=== PATIENT | female | born 1960 | race Caucasian/White ===

== ENCOUNTER 2017-05-25 06:07 | Emergency (ER) | payer SELFPAY ==
[~2017-05-25] VITALS: Ht 167.6 cm; Wt 59.0 kg
[~2017-05-25 06:07] MED LIST: ADVAIR 10028 PUFF/IN IN; ALBUTEROL2.5 MG/NEB IH; BREO ELLIPTA1 POW IH; CIPRO 500MG TA500 MG PO; GABAPENTIN100 M1 PO; LEVAQUIN 750 M750 MG PO; LEVOTHYROXINE0.05 MG NG; MINOCYCLINE 10100 MG PO; NAPROSYN500 M1 PO; NORCO 325 MG-51 TAB PO; PREDNISONE 20MG20 MG PO; SPIRIVA HA1 PUFF/INH IH; SYMBICORT1 AE1 IH; SYNTHROID 0.00.05 MG PO; TESSALON PERLE100 M1 PO; TESSALON PERLE100 MG PO; [UNRECOGNIZED DRUG - MIXTURE] PO
--- OUTSIDE RECORDS SUMMARY | 2017-05-25 06:44 | External Medical Summary Rpt ---
Author Author , GERARDO Puri GERARDO Address Unknown Phone [email or web address] Care Team Providers Care Commis Chef Name Role Phone [facility] Unavailable Unavailable [place], [facility] [place] DANIEL TURPIN MD, PSC, Unavailable Unavailable DANIEL TURPIN MD, PSC ARNOLD MAO, ARNOLD Unavailable Unavailable MAO ARNOLD MAO, ARNOLD Unavailable Unavailable MAO BARRERA BRO, BARRERA Unavailable Unavailable BRO BEINEKE, BEINEKE Unavailable Unavailable BESSON, BESSON Unavailable Unavailable BESSON BUD, BESSON Unavailable Unavailable BUD ALLISON ALL, ALLISON ALL Unavailable Unavailable CAPOOR SEE, CAPOOR Unavailable Unavailable SEE [facility] Unavailable Unavailable [facility], [facility] Unavailable Unavailable [facility], [facility] IBRAHIMA HALEY, Unavailable Unavailable IBRAHIMA HALEY FRYMAN EUG, FRYMAN Unavailable Unavailable EUG HEAVENLY RAMON, HEAVENLY Unavailable Unavailable RAMON GAMBREL PLACIDO, GAMBREL Unavailable Unavailable PLACIDO BOYD BUD, BOYD Unavailable Unavailable BUD [facility] Unavailable Unavailable INC, [facility] Unavailable Unavailable HOSPITAL P, [facility], Unavailable Unavailable [facility] VILLALOBOS TRA, VILLALOBOS TRA Unavailable Unavailable [facility], [facility] ELIANA CRI, ELIANA CRI Unavailable Unavailable EDMUNDO JR, EDMUNDO JR Unavailable Unavailable [facility] Unavailable Unavailable [facility], [facility] CAROLEE SARTHAK, Unavailable Unavailable CAROLEE SARTHAK CAROLEE SARTHAK, Unavailable Unavailable CAROLEE SARTHAK [facility], Unavailable Unavailable [facility] Un[facility] Unavailable [facility], [facility] RENUSCH, RENUSCH Unavailable Unavailable RENUSCH CARLEY, RENUSCH Unavailable Unavailable CARLEY [facility], Unavailable Unavailable [facility] Unavailable Unavailable ASSIST, [facility] VERA MAR, VERA MAR Unavailable Unavailable Purpose Continuity of Care Document - 02-18-2014 through 2016 Problems Code Diagnosis DOS Provider Status D649 ANEMIA 01-12-2017 [facility] P J209 ACUTE 01-12-2017 [facility] BRONCHITIS [facility] P K219 GASTRO-ESOP 01-12-2017 [facility] H REFLUX [facility] P WITHOUT ESOPHAGITIS R071 CHEST PAIN 01-12-2017 [facility] [id number] CONTUSION 01-12-2017 [facility] RT FRONT [facility], WALL THORAX PLLC INITIAL ENCOUNTER [id number] STRAIN 01-12-2017 [facility] MUSCLE & PHYSIC[facility]ANS, TENDON PLLC FRONT WALL THORAX INIT Z720 TOBACCO USE 01-12-2017 [facility] P E039 HYPOTHYROID 11-15-2016 [facility] UNSPECIFIED INTERNAL MED J431 PANLOBULAR 11-15-2016 [facility] EMPHYSEMA [facility] INTERNAL MED J9801 ACUTE 11-15-2016 [facility] R0781 PLEURODYNIA 11-15-2016 [facility] INTERNAL MED E538 DEFICIENCY 07-06-2016 [facility]IC[facility] SPECIFIED B LA GROUP VITAMINS E43 UNSPECIFIED 07-05-2016 [facility]ERE [facility] PROTEIN-DAIJA LA ORIE MALNUTRITIO N G8929 OTHER 04-05-2016 [facility] CHRONIC [facility] PAIN INTERNAL MED R079 CHEST PAIN 04-05-2016 [facility] UNSPECIFIED [facility] INTERNAL MED M542 CERVICALGIA 01-13-2016 [facility] M549 DORSALGIA 01-13-2016 [facility] G29078 SPONDYLOSIS 01-05-2016 DANIEL TURPIN, W/O , PSC MYELOPATH/R ADICULOPATH Y LUMB RGN M479 SPONDYLOSIS 01-05-2016 [facility] UNSPEC[facility]IED INC M5136 OTH 01-05-2016 SANDHYA HARDWICK MD, PSC RAL DISC DEGEN LUMBAR REGION J439 EMPHYSEMA 11-24-2015 [facility] INC R634 ABNORMAL 11-24-2015 [facility] WEIGHT LOSS [facility] R918 OTHER 11-24-2015 [facility] NONSPECIFIC [facility]ICAL ABNORMAL [facility] ASS FINDING OF LUNG FIELD J449 CHRONIC 11-17-2015 [facility] PULMONARY INC DISEASE UNS L70331 OTHER 09-15-2015 [facility] SPONDYLOSIS MEDICAL LUMBAR IMAGING ASS REGION M5126 OTH 09-15-2015 [facility] INTERVERTEB MEDICAL RAL DISC IMAGING ASS DISPLACEMEN T LUMBAR RGN M545 LOW BACK 09-15-2015 [facility]IN [facility] R05 COUGH 08-20-2015 [facility] R0602 SHORTNESS 08-20-2015 [facility] OF BREATH [facility] J310 CHRONIC 08-06-2015 [facility] [place] J440 COPD WITH 08-06-2015 [facility] ACUTE LOWER [facility] [place] RESPIRATORY INFECTION J4520 MILD 08-06-2015 [facility] INTERMITTEN [facility] OF T ASTHMA [place] UNCOMPLICAT ED R011 CARDIAC 07-29-2015 [facility] PH[facility]ANS UNSPECIFIED GROUP K5660 UNSPECIFIED 07-24-2015 [facility] OBSTRUCTION R109 UNSPECIFIED 07-24-2015 [facility]OMINAL [facility] PAIN [facility] R112 NAUSEA WITH 07-24-2015 [facility] VOMITING MEDICAL UNSPECIFIED IMAGING ASS R188 OTHER 07-24-2015 [facility] ASCITES [facility] R938 ABNORMAL 07-14-2015 [facility] FIND ON DX PHYSICIANS IMAGING OTH GROUP SPEC BODY STRCT 496 CHRONIC 07-09-2015 [facility] OBSTRUCTION INC NEC 5110 PLEURISY 07-09-2015 [facility] WITHOUT MEDICAL MENTION IMAGING ASS EFFUS/CURRE NT TB 7210 CERVICAL 07-09-2015 [facility] SPONDYLOSIS MEDICAL WITHOUT IMAGING ASS MYELOPATHY 7231 CERVICALGIA 07-09-2015 [facility] 7245 UNSPECIFIED 07-09-2015 [facility] BACKACHE [facility] 47005 SHORTNESS 07-09-2015 [facility] OF [facility] 7862 COUGH 07-09-2015 [facility] 3669 UNSPECIFIED 05-27-2015 [facility] 92910 MIOSIS , 05-27-2015 [facility] NOT DUE TO SERVICES MIOTICS 50470 TOTAL OR 03-25-2015 [facility] SENILE ASSIST CATARACT 4660 ACUTE 01-16-2015 ARNOLD MAO BRONCHITIS 4770 ALLERGIC 12-17-2014 [facility] RHINITIS SARTHAK DUE TO POLLEN 4778 ALLERGIC 12-17-2014 [facility] RHINITIS SARTHAK DUE TO OTHER ALLERGEN 4919 UNSPECIFIED 12-17-2014 CAR[facility] CHRONIC SARTHAK BRONCHITIS 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 33954 OTHER 05-23-2014 CAR[facility]E MALAISE AND SARTHAK FATIGUE V727 DIAGNOSTIC 05-23-2014 CAR[facility]E SKIN AND SARTHAK SENSITIZATI ON TESTS 10788 OBSTRUCTIVE 04-20-2014 GUILLERMINA CAVANAUGH CHRONIC BRONCHITIS WITH EXACERBATIO N 26776 ASTHMA 04-20-2014 GUILLERMINA CAVANAUGH UNSPECIFIED WITH STATUS ASTHMATICUS 12980 OTHER 02-18-2014 [facility] DISEASES OF N EMERGENCY NASAL PHYS CAVITY AND SINUSES 486 PNEUMONIA, 02-18-2014 [facility] ORGANISM N EMERGENCY UNSPECIFIED PHYS Medications Na ND Rx Da Fi Fi Am Da Di Ph RX Ph St me C No te ll ll ou ys ag ar # ys at rm s nt no ma ic us Or Da si cy ia de te s n re d BE 68 04 05 15 5 00 VA Ac NZ 38 -0 -0 .0 00 L- ti ON 20 6- 5- 00 07 MA ve AT 24 20 20 48 RT AT 70 17 17 07 E 1 78 PH 10 AR 0 MA MG CY CA #5 PS 91 UL E NV 13 04 05 14 7 00 VA Ac NO 66 -0 -0 .0 00 L- ti CY 80 6- 5- 00 07 MA ve CL 48 20 20 48 RT IN 45 17 17 07 E 0 79 PH 10 AR 0 MA MG CY CA #5 PS 91 UL E NH 00 04 05 10 5 00 VA Ac ED 14 -0 -0 .0 00 L- ti NI 39 6- 5- 00 07 MA ve SO 73 20 20 48 RT NE 80 17 17 07 5 80 PH 20 AR MA MG CY TA #5 BL 91 ET GA 53 04 04 30 30 00 VA Ac BA 74 -0 -2 .0 00 L- ti PE 60 4- 8- 00 07 MA ve NT 10 20 20 47 RT IN 10 17 17 93 5 35 PH 10 AR 0 MA MG CY CA #5 PS 91 UL E NV 57 03 04 30 30 00 VA Ac RT 23 -2 -2 .0 00 L- ti AZ 70 9- 1- 00 07 MA ve AP 00 20 20 47 RT IN 93 17 17 92 E 0 80 PH 30 AR MA MG CY TA #5 BL 91 ET GA 53 03 04 30 30 00 VA Ac BA 74 -1 -0 .0 00 L- ti PE 60 2- 7- 00 07 MA ve NT 10 20 20 47 RT IN 10 17 17 14 5 25 PH 10 AR 0 MA MG CY CA #5 PS 91 UL E SP 00 02 03 30 30 00 VA Ac IR 59 -2 -2 .0 00 L- ti IV 70 8- 4- 00 07 MA ve A 07 20 20 41 RT 18 54 17 17 28 1 96 PH MC AR G MA CP CY -H AN #5 DI 91 SIN LE R VE 00 02 03 18 17 00 WA Ac NT 17 -2 -2 .0 00 L- ti OL 30 8- 4- 00 07 MA ve IN 68 20 20 41 RT 22 17 17 29 HF 0 06 PH A AR 90 MA CY MC G #5 IN 91 SIN LE R FL 60 02 03 16 30 00 WA Ac UT 43 -2 -2 .0 00 L- ti IC 20 8- 4- 00 07 MA ve 26 20 20 44 RT ON 41 17 17 32 E 5 67 PH NH AR OP MA CY 50 #5 MC 91 G SP RA Y SY 00 02 03 10 30 00 WA Ac MB 18 -2 -2 .1 00 L- ti IC 60 8- 4- 99 07 MA ve OR 37 20 20 42 RT T 02 17 17 12 16 0 63 PH 0- AR 4. MA 5 CY MC G #5 IN 91 SIN LE R LE 00 02 03 30 30 00 WA Ac VO 78 -2 -2 .0 00 L- ti TH 15 8- 4- 00 07 MA ve YR 18 20 20 44 RT OX 49 17 17 36 IN 2 41 PH E AR 10 MA 0 CY MC G #5 TA 91 BL ET PA 68 02 03 30 30 00 WA Ac RO 38 -2 -2 .0 00 L- ti XE 20 8- 4- 00 07 MA ve TI 09 20 20 44 RT NE 80 17 17 59 6 61 PH HC AR L MA 20 CY MG #5 91 TA BL ET GA 53 02 03 30 30 00 WA Ac BA 74 -1 -1 .0 00 L- ti PE 60 7- 7- 00 07 MA ve NT 10 20 20 47 RT IN 10 17 17 14 5 25 PH 10 AR 0 MA MG CY CA #5 PS 91 UL E LE 00 01 02 30 30 00 WA Ac VO 78 -0 -0 .0 00 L- ti TH 15 5- 3- 00 07 MA ve YR 18 20 20 44 RT OX 49 17 17 36 IN 2 41 PH E AR 10 MA 0 CY MC G #5 TA 91 BL ET AZ 59 01 02 15 30 00 WA Ac IT 76 -0 -0 .0 00 L- ti HR 23 5- 3- 00 07 MA ve OM 06 20 20 42 RT YC 00 17 17 12 IN 2 64 PH AR 25 MA 0 CY MG #5 TA 91 BL ET GA 65 01 02 30 30 00 WA Ac BA 16 -0 -0 .0 00 L- ti PE 20 5- 3- 00 07 MA ve NT 10 20 20 44 RT IN 15 17 17 18 0 71 PH 10 AR 0 MA MG CY CA #5 PS 91 UL E Procedures Procedure DOS Code Location Performer Comment THERAPEUT 43785 [facility] FRA[facility] IC 7 [facility] INJECTION INC INC IV PUSH EACH NEW DRUG THER 29877 [facility] FRAZIER PROPH/DX 7 [facility] NJX IV INC INC PUSH SINGLE/1S T SBST/DRUG ECG 55263 FR[facility] FRAZIER ROUTINE 7 [facility] ECG INC INC W/LEAST 12 LDS TRCG ONLY W/O I&R CULTURE 31782 [facility] FRAZIER BACTERIAL 7 [facility] BLOOD INC INC AEROBIC W/ID ISOLATES BLOOD 60810 [facility] FRAZIER COUNT 7 [facility] COMPLETE INC INC AUTO&[place] [address] FR[facility] FRAZIER TROPONIN 7 [facility] QUANTITAT INC INC ANAMIKA ECG 95806 FR[facility]DIE WYATT JR ROUTINE 7 [facility] W/LEAST P 12 LDS I&R ONLY RADIOLOGI 24551 [facility] EXAM 7 MEDICAL CHEST 2 IMAGING VIEWS ASS FRONTAL&L ATERAL UNCLASSIF J3490 [facility] IED DRUGS 7 [facility] INC INC RADEX 42635 [facility] RENUSCH RIBS UNI 7 PHYSICIAN W/POSTERO S, PLLC ANT CH MINIMUM [address] [place] [address] [facility] LACTATE 7 [facility] INC INC COMPREHEN 42669 [facility] SIVE 7 [facility] METABOLIC INC INC PANEL DEMO&/USMAN 54236 [facility]ON L OF PT 7 [facility] INTERNAL AERSL MED GEN/NEB/I NHLR/IP UNCLASSIF J3490 [facility] IED DRUGS 6 [facility] INC INC RADEX 70331 [facility] FRAZIER RIBS UNI 6 [facility] W/POSTERO INC INC ANT CH MINIMUM 3 VIEWS CYANOCOBA 26053 COMBINED COMBINED BARBARA 6 PHYSICIAN PHYSICIAN VITAMIN S LA S LA B-12 [place] [address] COMBINED COMBINED FERRITIN 6 PHYSICIAN PHYSICIAN S LA S LA IRON 83067 COMBINED COMBINED BINDING 6 PHYSICIAN [place] [address] COMBINED COMBINED IRON 6 [place] [address] COMBINED COMBINED THYROID 6 PHYSICIAN PHYSICIAN STIMULATI S LA S LA NG HORMONE TSH COMPREHEN 01621 COMBINED COMBINED SIVE 6 PHYSICIAN PHYSICIAN METABOLIC S LA S LA PANEL LIPID 61093 COMBINED COMBINED PANEL 6 PHYSICIAN PHYSICIAN S LA S LA BLOOD 92990 COMBINED COMBINED COUNT 6 PHYSICIAN PHYSICIAN COMPLETE S LA S LA AUTO&AUTO DIFRNTL WBC THERAPEUT 27918 FR[facility] FRAZIER IC PX 1/> 6 [facility] AREAS INC INC EACH 15 MIN EXERCISES APPLICATI 66910 FR[facility] FRAZIER ON 6 [facility] MODALITY INC INC 1/> AREAS HOT/COLD PACKS E-STIM G0283 [facility] FRAZIER 1/> AREAS 6 [facility] OTH THAN INC INC WND CARE PART TX PLAN PHYSICAL 31620 [facility] THERAPY 6 [facility] EVALUATIO INC INC N CT THORAX 41401 [facility] IBRAHIMA W/O 6 MEDICAL HALEY CONTRAST IMAGING MATERIAL ASS SMR PRIM 76459 [facility] SRC 6 [facility] GRAM/GIEM INC INC SA STAIN BCT FUNGI/BARON L BLOOD 62771 [facility] COUNT 6 [facility] COMPLETE INC INC AUTO&AUTO DIFRNTL WBC TB CELL 19330 [facility] MEDIATED 6 [facility] ANTIGN INC INC RESPNSE GAMMA INTERFERO N CULTURE 84002 [facility] F[facility] TUBERCLE/ 6 [facility] OTH INC INC ACID-FAST BACILLI ANY ISOL CUL BACT 61980 [facility] XCPT 6 [facility] URINE INC INC BLOOD/STO OL AEROBIC ISOL CULTURE 56267 [facility] FRA[facility] FNGI 6 [facility] MOLD/YEAS INC INC T PRSMPTV OTH XCPT BLOOD COMPREHEN 19108 [facility] FRAZIER SIVE 6 [facility] METABOLIC INC INC PANEL COLLECTIO 11540 [facility] FRAZ[facility] N VENOUS 6 [facility] BLOOD INC INC VENIPUNCT URE 3D 05797 MANDY IBRAHIMA RENDERING 5 MEDICAL [facility] W/INTERP IMAGING & ASS POSTPROCE SS SUPERVISI ON MRI 77589 [facility] ALEXANDRA SPINAL 5 MEDICAL [facility] CANAL IMAGING LUMBAR ASS W/O CONTRAST MATERIAL CT THORAX 08047 MANDY ALLISON ALL W/O 5 MEDICAL CONTRAST IMAGING MATERIAL ASS NITRIC 58106 [facility] VERA MAR OXIDE 5 [facility] GAS CO DETERMINA TION BRNCDILAT 26067 [facility] VERA MAR RSPSE 5 [facility] SPMTRY [facility] PRE&POST- [place] [address] [facility] F[facility] LIPASE 5 [facility] [place] [address] FR[facility] FRAZIER INFUSION 5 [facility] THERAPY/P INC INC ROPHYLAXI S /DX 1ST TO 1 HR HOSPITAL G0378 [facility] FRAZIER OBSERVATI 5 [facility]OS[facility] [place] [address] [facility] F[facility] THYROID 5 [facility] STIMULATI [place] [address] FR[facility]IE FRAZIER AMYLASE 5 [facility] INC INC COMPREHEN 76981 FR[facility]DIE FRAZIER SIVE 5 [facility] METABOLIC INC INC PANEL INJECTION J2405 FR[facility]DIE FRAZIER 5 [facility] ONDANSETR INC INC ON HCL PER 1 MG THERAPEUT 67196 FR[facility]IE FRAZIER IC 5 [facility] INJECTION INC INC IV PUSH EACH NEW DRUG BLOOD 57046 FR[facility] FRAZIER COUNT 5 [facility] COMPLETE INC INC AUTO&AUTO DIFRNTL WBC UNCLASSIF J3490 FR[facility]DIE FRAZIER IED DRUGS 5 [facility] [place] [address] MANDY ALLISON ALL ABDOMEN & 5 MEDICAL PELVIS IMAGING W/O ASS CONTRAST MATERIAL SKIN TEST 39187 [facility] SHIRAZAN 5 [facility] SIS INTRADERM AL RADEX 44881 [facility] FRAZIER SPINE 5 [facility] THORACIC INC INC 2 VIEWS RADIOLOGI 27655 MANDY ALLISON ALL C EXAM 5 MEDICAL CHEST 2 IMAGING VIEWS ASS FRONTAL&L ATERAL RADEX 82221 [facility] ALLISON ALL SPINE 5 MEDICAL CERVICAL IMAGING 4 OR 5 ASS VIEWS BRNCDILAT 87789 FR[facility]DIE MONROE RSPSE 5 [facility] PRE&POST- P BRNCDILAT ADMN ECHO 71693 FR[facility]DIE FRAZIER TTHRC R-T 5 [facility] HOSP 2D INC INC W/WOM-MOD E COMPL SPEC&[place] [address] FR[facility]DIE MONROE DIFFUSING 5 [facility] P GAS 04436 FR[facility]DIE MONROE DILUT/WAS 5 [facility] VOL W/WO P DISTRIB VENT&V ANESTHESI 46633 [place] GAM[facility]REL A EYE 5 MEDICAL PLACIDO LENS SERVICES SURGERY XCAPSULAR 68546 [place] [facility] CATARACT 5 MEDICAL SEE RMVL SERV INSJ LENS FOUNDATIO PROSTH 1 N STG XCAPSULAR 58103 [place] [facility] 5 MEDICAL SEE RMVL SERV INSJ LENS FOUNDATIO PROSTH 1 N STG ANESTHESI 21594 [facility] A EYE 5 [facility] LENS PHYSICIAN SURGERY S ASSIST DEMO&/USMAN 39925 CAROLEE CAROLEE L OF PT 5 SARTHAK SARTHAK UTILIZ AERSL GEN/NEB/I NHLR/IP NONINVASI 13673 CAROLEE CAROLEE VE 5 SARTHAK SARTHAK EAR/PULSE OXIMETRY SINGLE DETER PRESSURIZ 85624 CAROLEE CAROLEE ED/NONPRE 5 SARTHAK SARTHAK SSURIZED INHALATIO N TREATMENT BRNCDILAT 96774 CAROLEE CAROLEE RSPSE 5 SARTHAK SARTHAK SPMTRY PRE&POST- BRNCDILAT ADMN SPMTRY 23384 CAROLEE CAROLEE W/VC 4 SARTHAK SARTHAK EXPIRATOR Y LOURDES W/WO MXML VOL VNTJ SPMTRY 75203 CAROLEE CAROLEE W/VC 4 SARTHAK DE LEÓN EXPIRATOR Y LOURDES W/WO MXML VOL VNTJ NONINVASI 29506 CAROLEE CAROLEE VE 4 SARTHAK DE LEÓN EAR/PULSE OXIMETRY SINGLE DETER PRESSURIZ 88812 CAROLEE CAROLEE ED/NONPRE 4 SARTHAK DE LEÓN SSURIZED INHALATIO N TREATMENT BRNCDILAT 68220 CAROLEE CAROLEE RSPSE 4 SARTHAK DE LEÓN SPMTRY PRE&POST- BRNCDILAT ADMN INTRACUTA 79905 CAROLEE CAROLEE NEOUS 4 SARTHAK SARTHAK TESTS W/ALLERGE MARGAUX EXTRACTS PERCUTANE 99198 CAROLEE CAROLEE OUS TESTS 4 SARTHAK SARTHAK W/ALLERGE MARGAUX EXTRACTS NITRIC 71641 CAROLEE CAROLEE OXIDE 4 SARTHAK DE LEÓN GAS DETERMINA TION DEMO&/USMAN 27401 CAROLEE CAROLEE L OF PT 4 SARTHAK DE LEÓN UTILIZ AERSL GEN/NEB/I NHLR/IP NEBULIZER E0570 MT MED MT MED WITH 4 EQUIPMENT EQUIPMENT COMPRESSO INC INC R SPACR A4627 MT MED MT MED BAG/RESRV 4 EQUIPMENT EQUIPMENT OR W/WO INC INC MASK W/METRD DOSE INHAL ADMN SET A7005 MT MED MT MED W/SM VOL 4 EQUIPMENT EQUIPMENT NONFILTR INC INC NEBULIZR NON-DISPB L ECG 37123 FR[facility] FRAZIER ROUTINE 4 [facility] ECG INC INC W/LEAST 12 LDS TRCG ONLY W/O I&R PROTHROMB 18011 FR[facility]DIE FRAZIER IN TIME 4 [facility] INC INC FIBRIN 80904 [facility] FRAZIER DGRADJ 4 [facility] PRODUCTS INC INC D-DIMER QUAL/SEMI SHAUN CREATINE 04601 FR[facility]IE FRAZIER KINASE 4 [facility] TOTAL INC INC RHYTHM 82380 FR[facility]DIE FRAZIER ECG 1-3 4 [facility] LEADS INC INC TRACING ONLY W/O I&R RADIOLOGI 37589 FREDDIE Scott EXAM 4 [facility] CHEST 2 INC INC VIEWS FRONTAL&L ATERAL CULTURE 57124 FR[facility]DIE FRAZIER BACTERIAL 4 [facility] BLOOD INC INC AEROBIC W/ID ISOLATES BLOOD 67159 FREDDIE FRAZIER COUNT 4 [facility] COMPLETE INC INC AUTO&AUTO DIFRNTL WBC THROMBOPL 75305 FREDDIE FRAZIER ASTIN 4 [facility] TIME INC INC PARTIAL PLASMA/WH OLE BLOOD UNCLASSIF J3490 FREDDIEPEDRO FRAZIER IED DRUGS 4 [facility]OS[facility] INC INC ECG 85644 FREDDIE MONROE ROUTINE 4 [facility] W/LEAST P 12 LDS I&[place] [address] FREDDIE FRAZIER ANGIOGRAP 4 [facility] HOS[facility] HY CHEST INC INC W/[place] [address] FREDDIE FRAZIER TROPONIN 4 [facility]OS[facility] QUANTITAT INC INC ANAMIKA CREATINE 71415 FREDDIE FRAZIER KINASE MB 4 [facility]OS[facility] FRACTION INC INC ONLY COMPREHEN 21374 FREDDIE FRAZIER SIVE 4 [facility] METABOLIC INC INC PANEL LOCM Q9967 FR[facility]DIE FRAZIER 300-399 4 [facility] MG/ML INC INC IODINE CONCENTRA TION PER ML Encounters Encounter Start End Date Code Location Performer Type Date [facility] FREDDIE - 7 7 [facility] OUTPATIEN [facility] T EMERGENCY 73943 CONNIE ULLOA 7 7 PHYSICIAN [facility] T VISIT HIGH/URGE NT SEVERITY OFFICE 57759 STEPHANE MONROE [facility] 7 7 [place] T VISIT INTERNAL 25 MED MINUTES EMERGENCY [address] FREDDIE [address] [facility] T VISIT LIMITED/M INOR [facility] FREDDIE - 6 6 [facility] T EMERGENCY 90084 CONNIE ULLOA 6 6 PHYSICIAN S[place]IL [place] T VISIT HIGH/URGE NT SEVERITY OFFICE 52836 [facility] OUTPATIEN 6 6 [facility] T VISIT INTERNAL 15 MED MINUTES OFFICE 81043 [facility] OUTPATIEN 6 6 [facility] NEW 45 INTERNAL MINUTES [facility] FREDDIE - 6 6 [facility] OUTPATIEN INC T OFFICE 27588 DANIEL MONROY [facility] OUTPATIEN 6 6 MD DYANA, T NEW 45 PSC MINUTES HOSPITAL FREDDIE - 6 6 [facility] OUTPATIEN [facility] OFFICE 24320 FREDDIE OUTPATIEN 6 6 [facility] T VISIT INC 10 MINUTES HOSPITAL FREDDIE - 6 6 [facility]PATIEN [facility] FREDDIE - 6 6 [facility] OUTPATIEN INC [facility] FREDDIE - 5 5 [facility] OUTPATIEN INC HOSPITAL FREDDIE - 5 5 [facility] OUTPATIEN [facility] T OFFICE 59672 [facility] OUTPATIEN 5 5 PHYSICIAN RAMON T VISIT S GROUP 10 MINUTES OFFICE 90300 [facility] VERA MAR OUTPATIEN 5 5 [facility]ERS T VISIT OF [facility] 25 CO MINUTES OFFICE 65020 [facility] OUTPATIEN 5 5 PHYSICIAN RAMON T VISIT S GROUP 25 MINUTES EMERGENCY 20947 CONNIE BURDICK DEPT 5 5 PHYSICIAN RAMON VISIT S, PLLC HIGH SEVERITY& THREAT [facility] FR[facility] - 5 5 [facility] OUTPATIEN INC T OFFICE 55723 [facility] SCHULSTAD OUTPATIEN 5 5 PHYSICIAN CAM T NEW 45 S GROUP MINUTES OFFICE 84686 [facility] TRA CONSULTAT 5 5 [place] ION ORTHOPAED NEW/ESTAB ICS PLC PATIENT 40 MIN OFFICE 02197 [facility] HE[facility] OUTPATIEN 5 5 PHYSICIAN RAMON T VISIT 5 S GROUP MINUTES OFFICE 73944 [facility] NIELSEN OUTPATIEN 5 5 [facility] T VISIT 5 HOSPITAL MINUTES [facility] - 5 5 [facility] - 5 5 [facility] INC T OFFICE 49951 GUILLERMINA GUILLERMINA OUTPATIEN 5 5 MAO MAO T VISIT 15 MINUTES OFFICE 30551 CAROLEE CAROLEE OUTPATIEN 5 5 SARTHAK SARTHAK T VISIT 25 MINUTES OFFICE 50779 [facility] CAROLEE OUTPATIEN 4 4 SARTHAK SARTHAK T VISIT 25 MINUTES OFFICE 63720 CAR[facility] CAROLEE OUTPATIEN 4 4 SARTHAK SARTHAK T VISIT 25 MINUTES OFFICE 74686 CAROLEE DYERHBURN CONSULTAT 4 4 SARTHAK SARTHAK ION NEW/ESTAB PATIENT 80 MIN OFFICE 53764 [facility] GUILLERMINA OUTPATIEN 4 4 MAO MAO T VISIT 15 MINUTES EMERGENCY 98681 [facility] DEPT 4 4 JACKIE GAFFNEY VISIT EMERGENCY HIGH PHYS SEVERITY& THREAT FUNJ EMERGENCY 02582 [facility] 4 4 [facility] INC T VISIT HIGH/URGE NT SEVERITY [facility] - 4 4 [facility] INC T
--- OUTSIDE RECORDS SUMMARY | 2017-05-25 06:44 | External Medical Summary Rpt ---
Author Author , GERARDO Puri GERARDO Address Unknown Phone [email or web address] Care Team Providers Care Cut Order Hand Name Role Phone [facility] Unavailable [...] PLACIDO BOYD BUD, BOYD Unavailable Unavailable [facility] Unavailable Unavailable INC, [facility] Unavailable Unavailable HOSPITAL P, [facility] P [facility], Unavailable Unavailable [facility] VILLALOBOS TRA, VILLALOBOS TRA Unavailable Unavailable [facility] ELIANA CRI, ELIANA CRI Unavailable Unavailable EDMUNDO JR, EDMUNDO JR Unavailable Unavailable [facility] Unavailable Unavailable INTERNAL MED, [facility] CAROLEE SARTHAK, Unavailable Unavailable CAROLEE SARTHAK CAROLEE SARTHAK, Unavailable Unavailable CAROLEE SARTHAK [facility], Unavailable Unavailable [facility] Unavailable Unavailable PLL[facility], [facility] RENUSCH, RENUSCH Unavailable Unavailable RENUSCH CARLEY, RENUSCH Unavailable Unavailable CARLEY [facility], Unavailable Unavailable [facility] Unavailable Unavailable ASSIST, [facility] ASS[facility] VERA MAR, VERA MAR Unavailable Unavailable Purpose Continuity of Care Document - 02-18-2014 through 2016 Problems Code Diagnosis DOS Provider Status D649 ANEMIA 01-12-2017 [facility] P J209 ACUTE 01-12-2017 [facility] P K219 GASTRO-ESOP 01-12-2017 [facility] H REFLUX [facility] P WITHOUT ESOPHAGITIS R071 CHEST PAIN 01-12-2017 [facility] [id number] CONTUSION 01-12-2017 [facility] RT FRONT [facility], WALL THORAX PLLC INITIAL ENCOUNTER [id number] STRAIN 01-12-2017 [facility] MUSCLE & [facility]YS[facility], TENDON PLLC FRONT WALL THORAX INIT Z720 TOBACCO USE 01-12-2017 [facility] P E039 HYPOTHYROID 11-15-2016 [facility] [place] UNSPECIFIED INTERNAL MED J431 PANLOBULAR 11-15-2016 [facility] EMPHYSEMA [place] INTERNAL MED J9801 ACUTE 11-15-2016 [facility] R0781 PLEURODYNIA 11-15-2016 [facility] [place] INTERNAL MED E538 DEFICIENCY 07-06-2016 [facility] OTHER PHYSICIANS SPECIFIED B LA GROUP VITAMINS E43 UNSPECIFIED 07-05-2016 [facility] SEVERE PHYSICIANS PROTEIN-DAIJA LA ORIE MALNUTRITIO N G8929 OTHER 04-05-2016 [facility] CHRONIC [place] PAIN INTERNAL MED R079 CHEST PAIN 04-05-2016 [facility] UNSPECIFIED [place] INTERNAL MED M542 CERVICALGIA 01-13-2016 [facility] M549 DORSALGIA 01-13-2016 [facility] INC [id number] SPONDYLOSIS 01-05-2016 DANIEL TURPIN, W/O , PSC MYELOPATH/R ADICULOPATH Y LUMB RGN M479 SPONDYLOSIS 01-05-2016 [facility] UNSPECIFIED INC 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 01-05-2016 SANDHYA HARDWICK MD, PSC RAL DISC DEGEN LUMBAR REGION J439 EMPHYSEMA 11-24-2015 [facility] INC R634 ABNORMAL 11-24-2015 [facility] WEIGHT LOSS [facility] INC R918 OTHER 11-24-2015 [facility] NONSPECIFIC [facility]NORMAL [facility] FINDING OF LUNG FIELD J449 CHRONIC 11-17-2015 [facility] PULMONARY INC DISEASE UNS C17143 OTHER 09-15-2015 [facility] SPONDYLOSIS [facility]ICAL LUMBAR IMAGING ASS REGION M5126 OTH 09-15-2015 [facility] INTERVERTEB [facility]ICAL RAL DISC IMAGING ASS DISPLACEMEN T LUMBAR RGN M545 LOW BACK 09-15-2015 [facility] R05 COUGH 08-20-2015 [facility] R0602 SHORTNESS 08-20-2015 [facility] J310 CHRONIC 08-06-2015 [facility] RHINITIS [facility] CO J440 COPD WITH 08-06-2015 [facility] ACUTE LOWER [facility] CO RESPIRATORY INFECTION J4520 MILD 08-06-2015 [facility] INTERMITTEN PARTNERS OF T ASTHMA [facility] CO UNCOMPLICAT ED R011 CARDIAC 07-29-2015 [facility] PHYSICIANS UNSPECIFIED GROUP K5660 UNSPECIFIED 07-24-2015 [facility] OBSTRUCTION R109 UNSPECIFIED 07-24-2015 [facility] PAIN [facility] R112 NAUSEA WITH 07-24-2015 [facility] VOMITING [facility]ICAL UNSPECIFIED IMAGING ASS R188 OTHER 07-24-2015 [facility] ASC[facility]ES [facility] R938 ABNORMAL 07-14-2015 [facility] FIND ON DX PHYSICIANS IMAGING OTH GROUP SPEC BODY STRCT 496 CHRONIC 07-09-2015 [facility] OBSTRUCTION INC NEC 5110 PLEURISY 07-09-2015 [facility] WITHOUT MEDICAL MENTION IMAGING ASS EFFUS/CURRE NT TB 7210 CERVICAL 07-09-2015 [facility] SPONDYLOSIS MEDICAL WITHOUT IMAGING ASS MYELOPATHY 7231 CERVICALGIA 07-09-2015 [facility] 7245 UNSPECIFIED 07-09-2015 [facility]HE [facility] 14877 SHORTNESS 07-09-2015 [facility] 7862 COUGH 07-09-2015 [facility] 3669 UNSPECIFIED 05-27-2015 [facility] 94035 MIOSIS , 05-27-2015 [facility] NOT DUE TO SERVICES MIOTICS 51089 TOTAL OR 03-25-2015 [facility] MATURE PHYSICIANS SENILE ASSIST CATARACT 4660 ACUTE 01-16-2015 ARNOLD MAO BRONCHITIS 4770 ALLERGIC 12-17-2014 CARO[facility]E RHINITIS SARTHAK DUE TO POLLEN 4778 ALLERGIC 12-17-2014 CAR[facility]E RHINITIS SARTHAK DUE TO OTHER ALLERGEN 4919 UNSPECIFIED 12-17-2014 CAROLEE CHRONIC SARTHAK BRONCHITIS 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 48542 OTHER 05-23-2014 CAROLEE MALAISE AND SARTHAK FATIGUE V727 DIAGNOSTIC 05-23-2014 CAROLEE SKIN AND SARTHAK SENSITIZATI ON TESTS 10889 OBSTRUCTIVE 04-20-2014 GUILLERMINA CAVANAGUH CHRONIC BRONCHITIS WITH EXACERBATIO N 61284 ASTHMA 04-20-2014 GUILLERMINA CAVANAUGH UNSPECIFIED WITH STATUS ASTHMATICUS 61340 OTHER 02-18-2014 [facility] DISEASES [facility] N EMERGENCY [...] BE 68 04 05 15 5 00 MT Ac NZ 38 -0 -0 .0 00 L- ti ON 20 6- 5- 00 07 MA ve AT 24 20 20 48 RT AT 70 17 17 07 E 1 78 PH 10 AR 0 MA MG CY CA #[address] 13 04 05 14 7 00 MT Ac NO 66 -0 -0 .0 00 L- ti CY 80 6- 5- 00 07 MA ve CL 48 20 20 48 RT IN 45 17 17 07 E 0 79 PH 10 AR 0 MA MG CY CA #5 PS 91 UL E VT 00 04 05 10 5 00 MT Ac ED 14 -0 -0 .0 00 L- ti NI 39 6- 5- 00 07 MA ve SO 73 20 20 48 RT NE 80 17 17 07 5 80 PH 20 AR MA MG CY TA #5 BL 91 ET GA 53 04 04 30 30 00 MT Ac BA 74 -0 -2 .0 00 L- ti PE 60 4- 8- 00 07 MA ve NT 10 20 20 47 RT IN 10 17 17 93 5 35 PH 10 AR 0 MA MG CY CA #[address] 57 03 04 30 30 00 MT Ac RT 23 -2 -2 .0 00 L- ti AZ 70 9- 1- 00 07 MA ve AP 00 20 20 47 RT IN 93 17 17 92 E 0 80 PH 30 AR MA MG CY TA #5 BL 91 ET GA 53 03 04 30 30 00 MT Ac BA 74 -1 -0 .0 00 L- ti PE 60 2- 7- 00 07 MA ve NT 10 20 20 47 RT IN 10 17 17 14 5 25 PH 10 AR 0 MA MG CY CA #5 PS 91 UL E SP 00 02 03 30 30 00 MT Ac IR 59 -2 -2 .0 00 [...] 17 17 32 E 5 67 PH VT AR OP MA CY 50 #5 MC [...] Procedure DOS Code Location Performer Comment THERAPEUT 93780 [facility] IC 7 [facility] INJECTION INC INC IV PUSH EACH NEW DRUG THER 57831 [facility] FRAZIER PROPH/DX 7 [facility] NJX IV INC INC PUSH SINGLE/1S T SBST/DRUG ECG 63660 [facility]IE FRAZIER ROUTINE 7 [facility] ECG INC INC W/LEAST 12 LDS TRCG ONLY W/O I&R CULTURE 27503 FR[facility]IE FRAZIER BACTERIAL 7 [facility] BLOOD INC INC AEROBIC W/ID ISOLATES BLOOD 01938 [facility] FRAZIER COUNT 7 [facility] COMPLETE INC INC AUTO&[place] [address] FR[facility] FRAZIER TROPONIN 7 [facility] QUANTITAT INC INC ANAMIKA ECG 67101 FR[facility]DIE WYATT JR ROUTINE 7 [facility] W/LEAST P 12 LDS I&R ONLY RADIOLOGI 54756 [facility] EXAM 7 MEDICAL CHEST 2 IMAGING VIEWS ASS FRONTAL&L ATERAL UNCLASSIF J3490 [facility] F[facility] IED DRUGS 7 [facility] INC INC RADEX 00379 [facility] RENUSCH RIBS UNI 7 PHYSICIAN W/POSTERO S, PLLC ANT CH MINIMUM 3 [place] [address] FR[facility] FRAZ[facility] LACTATE 7 [facility] INC INC COMPREHEN 19240 FR[facility] FRAZIER SIVE 7 [facility] METABOLIC INC INC PANEL DEMO&/USMAN 00781 [facility] OF PT 7 [facility]ILIZ INTERNAL AERSL MED GEN/NEB/I NHLR/IP UNCLASSIF J3490 [facility] FRAZIER IED DRUGS 6 [facility] INC INC RADEX 17212 FR[facility]DIE FRAZIER RIBS UNI 6 [facility] W/POSTERO INC INC ANT CH MINIMUM 3 VIEWS CYANOCOBA 84205 COMBINED COMBINED BARBARA 6 PHYSICIAN PHYSICIAN VITAMIN S [place] S LA B-12 [place] [address] COMBINED COMBINED FERRITIN 6 PHYSICIAN PHYSICIAN S LA S LA IRON 94635 COMBINED COMBINED BINDING 6 PHYSICIAN [place] [address] COMBINED COMBINED IRON 6 [place] [address] COMBINED COMBINED THYROID 6 PHYSICIAN PHYSICIAN STIMULATI S LA S LA NG HORMONE TSH COMPREHEN 85458 COMBINED COMBINED SIVE 6 PHYSICIAN PHYSICIAN METABOLIC S LA S LA PANEL LIPID 03089 COMBINED COMBINED PANEL 6 PHYSICIAN PHYSICIAN S LA S LA BLOOD 34209 COMBINED COMBINED COUNT 6 PHYSICIAN PHYSICIAN COMPLETE S LA S LA AUTO&AUTO DIFRNTL WBC THERAPEUT 14101 FREDDIE FRAZIER IC PX 1/> 6 [facility] AREAS INC INC EACH 15 MIN EXERCISES APPLICATI 38091 FR[facility] FRAZ[facility] ON 6 [facility] MODALITY INC INC 1/> AREAS HOT/COLD PACKS E-STIM G0283 [facility] FRAZIER 1/> AREAS 6 [facility] OTH THAN INC INC WND CARE PART TX PLAN PHYSICAL 83430 [facility] F[facility] THERAPY 6 [facility] EVALUATIO INC INC N CT THORAX 58226 [place] IBRAHIMA W/O 6 MEDICAL HLAEY CONTRAST IMAGING MATERIAL ASS SMR PRIM 97909 [facility] F[facility] SRC 6 [facility] GRAM/GIEM INC INC SA STAIN BCT FUNGI/BARON L BLOOD 58478 [facility] COUNT 6 [facility] COMPLETE INC INC AUTO&AUTO DIFRNTL WBC TB CELL 60354 [facility] F[facility] MEDIATED 6 [facility] ANTIGN INC INC RESPNSE GAMMA INTERFERO N CULTURE 43654 FR[facility]IE FRA[facility] TUBERCLE/ 6 [facility] OTH INC INC ACID-FAST BACILLI ANY ISOL CUL BACT 99456 [facility] F[facility] XCPT 6 [facility] URINE INC INC BLOOD/STO OL AEROBIC ISOL CULTURE 85366 [facility] FRA[facility] FNGI 6 [facility] MOLD/YEAS INC INC T PRSMPTV OTH XCPT BLOOD COMPREHEN 23187 FR[facility]DIE FRAZIER SIVE 6 [facility] METABOLIC INC INC PANEL COLLECTIO 29897 FREDDIE FRAZIER N VENOUS 6 [facility] BLOOD INC INC VENIPUNCT URE 3D 13104 MANDY IBRAHIMA RENDERING 5 MEDICAL HALEY W/INTERP IMAGING & ASS POSTPROCE SS SUPERVISI ON MRI 88099 [facility] ALEXANDRA SPINAL 5 MEDICAL HALEY CANAL IMAGING LUMBAR ASS W/O CONTRAST MATERIAL CT THORAX 21616 MANDY ALLISON ALL W/O 5 MEDICAL CONTRAST IMAGING MATERIAL ASS NITRIC 44718 [facility] VERA MAR OXIDE 5 [facility] GAS CO DETERMINA TION BRNCDILAT 87874 [facility] VERA MAR RSPSE 5 [facility] SPMTRY [facility] PRE&POST- [place] [address] [facility] FRA[facility] LIPASE 5 [facility] [place] [address] FREDDIE FRAZIER INFUSION 5 [facility] THERAPY/P INC INC ROPHYLAXI S /DX 1ST TO 1 [facility] G0378 FR[facility]DIE FRAZIER OBSERVATI 5 [facility] [place] [address] FR[facility] FRAZ[facility] THYROID 5 [facility] STIMULATI [place] [address] FR[facility]DIE FRAZIER AMYLASE 5 [facility] INC INC COMPREHEN 67538 FR[facility]DIE FRAZIER SIVE 5 [facility] METABOLIC INC INC PANEL INJECTION J2405 FR[facility]DIE FRAZIER 5 [facility] ONDANSETR INC INC ON HCL PER 1 MG THERAPEUT 22457 FR[facility]DIE FRAZIER IC 5 [facility] INJECTION INC INC IV PUSH EACH NEW DRUG BLOOD 60858 FR[facility]DIE FRAZIER COUNT 5 [facility] COMPLETE INC INC AUTO&AUTO DIFRNTL WBC UNCLASSIF J3490 FR[facility]DIE FRAZIER IED DRUGS 5 [facility] [place] [address] MANDY ALLISON ALL ABDOMEN & 5 MEDICAL PELVIS IMAGING W/O ASS CONTRAST MATERIAL SKIN TEST 42086 [facility] SHIRAZAN 5 [facility] INTRADERM AL RADEX 22026 FR[facility]DIE FRAZIER SPINE 5 [facility] THORACIC INC INC 2 VIEWS RADIOLOGI 86076 MANDY ALLISON ALL C EXAM 5 MEDICAL CHEST 2 IMAGING VIEWS ASS FRONTAL&L ATERAL RADEX 31205 [facility] ALLISON ALL SPINE 5 MEDICAL CERVICAL IMAGING 4 OR 5 ASS VIEWS BRNCDILAT 69468 FREDDIE MONROE RSPSE 5 [facility] PRE&POST- P BRNCDILAT ADMN ECHO 85263 FREDDIE FRAZIER TTHRC R-T 5 [facility] 2D INC INC W/WOM-MOD E COMPL SPEC&[place] [address] FR[facility] DIFFUSING 5 [facility] P GAS 07548 FR[facility]DIE MONROE DILUT/WAS 5 [facility] VOL W/WO P DISTRIB VENT&V ANESTHESI 22653 [place] GAMBREL A EYE 5 [facility]ICAL PLACIDO [facility]ENS SERVICES SURGERY XCAPSULAR 67040 [place] CAPOOR CATARACT 5 MEDICAL SEE RMVL SERV INSJ LENS FOUNDATIO PROSTH 1 N STG XCAPSULAR 40264 [place] [facility] CATARACT 5 MEDICAL SEE RMVL SERV INSJ LENS FOUNDATIO PROSTH 1 N STG ANESTHESI 01580 [facility] A EYE 5 [facility] LENS PHYSICIAN SURGERY S ASSIST DEMO&/USMAN 42398 CAROLEE CAROLEE L OF PT 5 SARTHAK SARTHAK UTILIZ AERSL GEN/NEB/I NHLR/IP NONINVASI 14508 CAROLEE CAROLEE VE 5 SARTHAK SARTHAK EAR/PULSE OXIMETRY SINGLE DETER PRESSURIZ 89005 CAROLEE CAROLEE ED/NONPRE 5 SARTHAK SARTHAK SSURIZED INHALATIO N TREATMENT BRNCDILAT 50544 CAROLEE CAROLEE RSPSE 5 SARTHAK SARTHAK SPMTRY PRE&POST- BRNCDILAT ADMN SPMTRY 71297 CAROLEE CAROLEE W/VC 4 SARTHAK SARTHAK EXPIRATOR Y LOURDES W/WO MXML VOL VNTJ SPMTRY 05895 CAROLEE CAROLEE W/VC 4 SARTHAK DE LEÓN EXPIRATOR Y LOURDES W/WO MXML VOL VNTJ NONINVASI 51204 CAROLEE CAROLEE VE 4 SARTHAK DE LEÓN EAR/PULSE OXIMETRY SINGLE DETER PRESSURIZ 22282 CAROLEE CAROLEE ED/NONPRE 4 SARTHAK DE LEÓN SSURIZED INHALATIO N TREATMENT BRNCDILAT 02773 CAROLEE CAROLEE RSPSE 4 SARTHAK DE LEÓN SPMTRY PRE&POST- BRNCDILAT ADMN INTRACUTA 08034 CAROLEE CAROLEE NEOUS 4 SARTHAK SARTHAK TESTS W/ALLERGE MARGAUX EXTRACTS PERCUTANE 93482 CAROLEE CAROLEE OUS TESTS 4 SARTHAK SARTHAK W/ALLERGE MARGAUX EXTRACTS NITRIC 09877 CAROLEE CAROLEE OXIDE 4 SARTHAK DE LEÓN GAS DETERMINA TION DEMO&/USMAN 01195 CAROLEE CAROLEE L OF PT 4 SARTHAK [...] NONFILTR INC INC NEBULIZR NON-DISPB L ECG 75219 FR[facility]DIE FRAZIER ROUTINE 4 [facility] ECG INC INC W/LEAST 12 LDS TRCG ONLY W/O I&R PROTHROMB 22822 FR[facility]DIE FRAZIER IN TIME 4 [facility] INC INC FIBRIN 16430 [facility]IE FRAZIER DGRADJ 4 [facility] PRODUCTS INC INC D-DIMER QUAL/SEMI HSAUN CREATINE 36428 [facility] FRA[facility] KINASE 4 [facility] TOTAL INC INC RHYTHM 39889 FR[facility]DIE FRAZIER ECG 1-3 4 [facility] LEADS INC INC TRACING ONLY W/O I&R RADIOLOGI 81372 FREDDIE Scott EXAM 4 [facility] CHEST 2 INC INC VIEWS FRONTAL&L ATERAL CULTURE 30779 FR[facility]IE FRAZIER BACTERIAL 4 [facility] BLOOD INC INC AEROBIC W/ID ISOLATES BLOOD 39975 FR[facility]IE FRAZIER COUNT 4 [facility] COMPLETE INC INC AUTO&AUTO DIFRNTL WBC THROMBOPL 30708 FR[facility]DIE FRAZIER ASTIN 4 [facility] TIME INC INC PARTIAL PLASMA/WH OLE BLOOD UNCLASSIF J3490 FREDDIEPEDRO FRAZIER IED DRUGS 4 [facility] INC INC ECG 67899 FREDDIE OMNROE ROUTINE 4 [facility] W/LEAST P 12 LDS I&[place] [address] FREDDIE FRAZIER ANGIOGRAP 4 [facility] HY CHEST INC INC W/[place] [address] FREDDIE FRAZIER TROPONIN 4 [facility] QUANTITAT INC INC ANAMIKA CREATINE 71236 FREDDIE FRAZIER KINASE MB 4 [facility] FRACTION INC INC ONLY COMPREHEN 63956 FREDDIE FRAZIER SIVE 4 [facility] METABOLIC INC INC PANEL LOCM Q9967 FR[facility]DIE FRAZIER 300-399 4 [facility] MG/ML INC INC IODINE CONCENTRA TION PER ML Encounters Encounter Start End Date Code Location Performer Type Date [facility] FREDDIE - [address] [facility] OUTPATIEN [facility]ER[facility] 13342 CONNIE ULLOA 7 7 PHYSICIAN [place] [facility] T VISIT HIGH/URGE NT SEVERITY OFFICE 98890 STEPHANE [facility] 7 7 [place] T VISIT INTERNAL 25 MED MINUTES EMERGENCY 46455 FR[facility]DIE 6 6 [facility] T VISIT LIMITED/M INOR [facility] FREDDIE - [address] [facility] 24342 CONNIE ULLOA 6 6 PHYSICIAN SUSHIL [place] T VISIT HIGH/URGE NT SEVERITY OFFICE 80189 [facility] OUT[facility]IEN 6 6 [place] BUD T VISIT INTERNAL 15 MED MINUTES OFFICE 61071 [facility] OUTPATIEN 6 6 [facility] T NEW 45 INTERNAL MINUT[facility] FR[facility] - 6 6 [facility] OUTPATIEN INC T OFFICE [address] [facility] 6 6 MD DYANA, T NEW 45 PSC MINUTES HOSPITAL FREDDIE - 6 6 [facility]PATIEN [facility] OFFICE 20360 FREDDIE OUTPATIEN 6 6 [facility] T VISIT INC 10 MINUTES HOSPITAL FREDDIE - 6 6 [facility]PATIEN [facility] FREDDIE - 6 6 [facility]PATIEN [facility] FREDDIE - 5 5 [facility] OUTPATIEN INC [facility] FREDDIE - 5 5 [facility] OFFICE 64115 [facility] HEAVENLY OUTPATIEN 5 5 PHYSICIAN RAMON T VISIT S GROUP 10 MINUTES OFFICE 70885 [facility] VERA MAR OUTPATIEN 5 5 [facility]ERS T VISIT OF [facility] 25 CO MINUTES OFFICE 08565 [facility] HEAV[facility] OUTPATIEN 5 5 PHYSICIAN RAMON T VISIT S GROUP 25 MINUTES EMERGENCY 64411 CONNIE BURDICK DEPT 5 5 PHYSICIAN RAMON VISIT S, PLLC HIGH SEVERITY& THREAT [facility] FREDDIE - 5 5 [facility] OUTPATIEN INC T OFFICE 15676 [facility] SCHULSTAD OUTPATIEN 5 5 PHYSICIAN CAM T NEW 45 S GROUP MINUTES OFFICE 82812 [facility] CONSULTAT 5 5 [place] ION ORTHOPAED NEW/ESTAB ICS PLC PATIENT 40 MIN OFFICE 36575 [facility] HEAVENLY OUTPATIEN 5 5 PHYSICIAN RAMON T VISIT 5 S GROUP MINUTES OFFICE 22619 FREDDIE NIELSEN OUTPATIEN 5 5 [facility] T VISIT 5 HOSPITAL MINUTES HOSPITAL FREDDIE - 5 5 [facility] OUTPATIEN INC T HOSPITAL FREDDIE - 5 5 [facility] OUTPATIEN INC T OFFICE 33915 GUILLERMINA GUILLERMINA OUTPATIEN 5 5 MAO MAO T VISIT 15 MINUTES OFFICE 18019 CAROLEE CAROLEE OUTPATIEN 5 5 SARTHAK SARTHAK T VISIT 25 MINUTES OFFICE 34193 CAROLEE CAROLEE OUTPATIEN 4 4 SARTHAK SARTHAK T VISIT 25 MINUTES OFFICE 54265 CAROLEE CAROLEE OUTPATIEN 4 4 SARTHAK SARTHAK T VISIT 25 MINUTES OFFICE 42722 CAROLEE DYERHBURN CONSULTAT 4 4 SARTHAK SARTHAK ION NEW/ESTAB PATIENT 80 MIN OFFICE 73852 [facility] GUILLERMINA OUTPATIEN 4 4 MAO MAO T VISIT 15 MINUTES EMERGENCY 61708 [facility] DEPT 4 4 JACKIE GAFFNEY VISIT EMERGENCY HIGH PHYS SEVERITY& THREAT FUNJ EMERGENCY 34041 FREDDIE 4 4 [facility] INC T VISIT HIGH/URGE NT SEVERITY [facility] FREDDIE - 4 4 [facility] OUTPATIEN INC T
--- OUTSIDE RECORDS SUMMARY | 2017-05-25 06:45 | External Medical Summary Rpt ---
Author Author , GERARDO Organization GERARDO Address Unknown Phone [email or web address] Care Team Providers Care Curriculum Assistant Principal Name Role Phone [facility] Un[facility] Un[facility] [place], [facility] [place] DANIEL TURPIN MD, PSC, Unavailable Unavailable DANIEL TURPIN MD, PSC ARNOLD MAO, ARNOLD Unavailable Unavailable MAO ARNOLD MAO, ARNOLD Unavailable Unavailable MAO BARRERA BRO, BARRERA Unavailable Unavailable BRO BESSON, BESSON Unavailable Unavailable BESSON BUD, BESSON Unavailable Unavailable BUD CAPOOR SEE, CAPOOR Unavailable Unavailable [facility] Unavailable Unavailable [facility], [facility] Unavailable Unavailable [facility], [facility] IBRAHIMA, IBRAHIMA Unavailable Unavailable FRYMAN EUG, FRYMAN Unavailable Unavailable EUG HEAVENLY RAMON, HEAVENLY Unavailable Unavailable RAMON GAMBREL PLACIDO, GAMBREL Unavailable Unavailable PLACIDO BOYD BUD, BOYD Unavailable Unavailable BUD [facility] Unavailable Unavailable INC, [facility] Unavailable Unavailable HOSPITAL P, [facility], [facility]available Unavailable [facility] VILLALOBOS TRA, VILLALOBOS TRA Unavailable Unavailable [facility], [facility], Un[facility] ELIANA CRI, ELIANA CRI Unavailable Unavailable EDMUNDO JR, EDMUNDO JR Unavailable Unavailable [facility] Unavailable Unavailable [facility], [facility] CAROLEE SARTHAK, Unavailable Unavailable CAROLEE SARTHAK CAROLEE SARTHAK, Unavailable Unavailable CAROLEE SARTHAK [facility], Unavailable Unavailable [facility] Unavailable Unavailable PLL[facility], [facility] RENUSCH, RENUSCH Unavailable Unavailable RENUSCH CARLEY, RENUSCH Unavailable Unavailable CARLEY SCHULSTAD CAM, Unavailable Unavailable SCHULSTAD CAM [facility] Unavailable [facility]available [facility], [facility] Unavailable Unavailable ASSIST, [facility] VERA MAR, VERA MAR Unavailable Unavailable Purpose Continuity of Care Document - 02-18-2014 through 2016 Problems Code Diagnosis DOS Provider Status D649 ANEMIA 01-12-2017 [facility] P J209 ACUTE 01-12-2017 [facility] P K219 GASTRO-ESOP 01-12-2017 [facility] H REFLUX [facility] P WITHOUT ESOPHAGITIS R071 CHEST PAIN 01-12-2017 [facility] [id number] CONTUSION 01-12-2017 [facility] RT FRONT [facility] WALL THORAX PLLC INITIAL ENCOUNTER [id number] STRAIN 01-12-2017 [facility] MUSCLE & [facility]YS[facility], TENDON PLLC FRONT WALL THORAX INIT Z720 TOBACCO USE 01-12-2017 [facility] P E039 HYPOTHYROID 11-15-2016 [facility] [place] UNSPECIFIED INTERNAL MED J431 PANLOBULAR 11-15-2016 [facility] EMPHYSEMA [place] INTER[facility] MED J9801 ACUTE 11-15-2016 [facility] BRONCHOSPAS [facility] INTERNAL MED R0781 PLEURODYNIA 11-15-2016 [facility] [place] [facility] MED E538 DEFICIENCY 07-06-2016 [facility] SPECIFIED B [facility] GROUP VITAMINS E43 UNSPECIFIED 07-05-2016 [facility] PROTEIN-DAIJA [place] ORIE MALNUTRITIO N G8929 OTHER 04-05-2016 [facility] CHRONIC [place] PAIN INTERNAL MED R079 CHEST PAIN 04-05-2016 [facility]PECIFIED [place] INTER[facility] MED M542 CERVICALGIA 01-13-2016 [facility] M549 DORSALGIA 01-13-2016 [facility] O35140 SPONDYLOSIS 01-05-2016 DANIEL TURPIN W/O , PSC MYELOPATH/R ADICULOPATH Y LUMB RGN M479 SPONDYLOSIS 01-05-2016 [facility] M5136 OTH 01-05-2016 SANDHYA HARDWICK MD, PSC RAL DISC DEGEN LUMBAR REGION J439 EMPHYSEMA 11-24-2015 [facility] R634 ABNORMAL 11-24-2015 [facility] WEIGHT LOSS [facility] R918 OTHER 11-24-2015 [facility]IFIC [facility]AL [facility] FINDING OF LUNG FIELD J449 CHRONIC 11-17-2015 [facility]STRUCTIVE [facility] PULMONARY INC DISEASE UNS [id number] OTHER 09-15-2015 [facility] SPONDYLOSIS [facility] LUMBAR [facility]AGING ASS REGION M5126 OTH 09-15-2015 [facility] INTER[facility]TEB [facility] RAL DISC IMAGING ASS DISPLACEMEN T LUMBAR RGN M545 LOW BACK 09-15-2015 [facility] R05 COUGH 08-20-2015 [facility] R0602 SHORTNESS 08-20-2015 [facility] J310 CHRONIC 08-06-2015 [facility] [place] J440 COPD WITH 08-06-2015 [facility] ACUTE LOWER [facility] [place] RESPIRATORY INFECTION J4520 MILD 08-06-2015 [facility] INTERMITTEN [facility] T ASTHMA [place] UNCOMPLICAT ED R011 CARDIAC 07-29-2015 [facility] PHYSICIANS UNSPECIFIED GROUP K5660 UNSPECIFIED 07-24-2015 [facility] OBSTRUCTION R109 UNSPECIFIED 07-24-2015 [facility] PAIN [facility] R112 NAUSEA WITH 07-24-2015 [facility] VOMITING [facility] UNSPECIFIED IMAGING ASS R188 OTHER 07-24-2015 [facility]ES [facility] R938 ABNORMAL 07-14-2015 [facility] FIND ON DX PHYSICIANS IMAGING OTH GROUP SPEC BODY STRCT 496 CHRONIC 07-09-2015 [facility] AIR[facility]AY [facility] OBSTRUCTION INC NEC 5110 PLEURISY 07-09-2015 [facility] WITHOUT MEDICAL MENTION [facility]ING ASS EFFUS/CURRE NT TB 7210 CERVICAL 07-09-2015 [facility] SPONDYLOSIS MEDICAL WITHOUT IMAGING ASS MYELOPATHY 7231 CERVICALGIA 07-09-2015 [facility] 7245 UNSPECIFIED 07-09-2015 [facility] BACKACHE [facility] 88451 SHORTNESS 07-09-2015 [facility] 7862 COUGH 07-09-2015 [facility] 3669 UNSPECIFIED 05-27-2015 [facility] 04769 MIOSIS , 05-27-2015 [facility] NOT DUE TO SERVICES MIOTICS 43626 TOTAL OR 03-25-2015 [facility] SENILE ASSIST CATARACT 4660 ACUTE 01-16-2015 ARNOLD MAO BRONCHITIS 4770 ALLERGIC 12-17-2014 [facility] RHINITIS SARTHAK DUE TO POLLEN 4778 ALLERGIC 12-17-2014 [facility] RHINITIS SARTHAK DUE TO OTHER ALLERGEN 4919 UNSPECIFIED 12-17-2014 [facility] CHRONIC SARTHAK BRONCHITIS 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 40674 OTHER 05-23-2014 CAR[facility] MALAISE AND SARTHAK FATIGUE V727 DIAGNOSTIC 05-23-2014 CAR[facility] SKIN AND SARTHAK SENSITIZATI ON TESTS 90465 OBSTRUCTIVE 04-20-2014 ARNOLD MAO CHRONIC BRONCHITIS WITH EXACERBATIO N 12144 ASTHMA 04-20-2014 ARNOLD MAO UNSPECIFIED WITH STATUS ASTHMATICUS 28890 OTHER 02-18-2014 [facility] N EMERGENCY [...] BE 68 04 05 15 5 00 NC Ac NZ 38 -0 -0 .0 00 L- ti ON 20 6- 5- 00 07 MA ve AT 24 20 20 48 RT AT 70 17 17 07 E 1 78 PH 10 AR 0 MA MG CY CA #5 PS 91 UL E SC 13 04 05 14 7 00 NC Ac NO 66 -0 -0 .0 00 L- ti CY 80 6- 5- 00 07 MA ve CL 48 20 20 48 RT IN 45 17 17 07 E 0 79 PH 10 AR 0 MA MG CY CA #5 PS 91 UL E CO 00 04 05 10 5 00 NC Ac ED 14 -0 -0 .0 00 L- ti NI 39 6- 5- 00 07 MA ve SO 73 20 20 48 RT NE 80 17 17 07 5 80 PH 20 AR MA MG CY TA #5 BL 91 ET GA 53 04 04 30 30 00 NC Ac BA 74 -0 -2 .0 00 L- ti PE 60 4- 8- 00 07 MA ve NT 10 20 20 47 RT IN 10 17 17 93 5 35 PH 10 AR 0 MA MG CY CA #5 PS 91 UL E SC 57 03 04 30 30 00 NC Ac RT 23 -2 -2 .0 00 L- ti AZ 70 9- 1- 00 07 MA ve AP 00 20 20 47 RT IN 93 17 17 92 E 0 80 PH 30 AR MA MG CY TA #5 BL 91 ET GA 53 03 04 30 30 00 NC Ac BA 74 -1 -0 .0 00 L- ti PE 60 2- 7- 00 07 MA ve NT 10 20 20 47 RT IN 10 17 17 14 5 25 PH 10 AR 0 MA MG CY CA #5 PS 91 UL E SP 00 02 03 30 30 00 NC Ac IR 59 -2 -2 .0 00 [...] MA CY MC G #5 IN 91 SNI LE R FL 60 02 03 16 30 00 WA Ac UT 43 -2 -2 .0 00 L- ti IC 20 8- 4- 00 07 MA ve 26 20 20 44 RT ON 41 17 17 32 E 5 67 PH CO AR OP MA CY 50 #5 MC 91 G SP RA Y SY 00 02 03 10 30 00 NC Ac MB 18 -2 -2 .1 00 L- ti IC 60 8- 4- 99 07 MA ve OR 37 20 20 42 RT T 02 17 17 12 16 0 63 PH 0- AR 4. MA 5 CY MC G #5 IN 91 SIN LE R LE 00 02 03 30 30 00 NC Ac VO 78 -2 -2 .0 00 L- ti TH 15 8- 4- 00 07 MA ve YR 18 20 20 44 RT OX 49 17 17 36 IN 2 41 PH E AR 10 MA 0 CY MC G #5 TA 91 BL ET PA 68 02 03 30 30 00 NC Ac RO 38 -2 -2 .0 00 L- ti XE 20 8- 4- 00 07 MA ve TI 09 20 20 44 RT NE 80 17 17 59 6 61 PH HC AR L MA 20 CY MG #5 91 TA BL ET GA 53 02 03 30 30 00 NC Ac BA 74 -1 -1 .0 00 L- ti PE 60 7- 7- 00 07 MA ve NT 10 20 20 47 RT IN 10 17 17 14 5 25 PH 10 AR 0 MA MG CY CA #5 PS 91 UL E LE 00 01 02 30 30 00 NC Ac VO 78 -0 -0 .0 00 [...] GA 65 01 02 30 30 00 NC Ac BA 16 -0 -0 .0 00 L- ti PE 20 5- 3- 00 07 MA ve NT 10 20 20 44 RT IN 15 17 17 18 0 71 PH 10 AR 0 MA MG CY CA #5 PS 91 UL E Procedures Procedure DOS Code Location Performer Comment THER 10828 [facility] FRAZ[facility] PROPH/DX 7 [facility] NJX IV INC INC PUSH SINGLE/1S T SBST/DRUG THERAPEUT 40413 [facility] FRAZIER IC 7 [facility] INJECTION INC INC IV PUSH EACH NEW DRUG ECG 78727 FR[facility]DIE FRAZIER ROUTINE 7 [facility] ECG INC INC W/LEAST 12 LDS TRCG ONLY W/O I&R ECG 94742 [facility] WYATT JR ROUTINE 7 [facility] W/LEAST P 12 LDS I&[place] [address] FR[facility] FRAZIER TROPONIN 7 [facility] QUANTITAT INC INC ANAMIKA BLOOD 90712 FR[facility]IE FRAZIER COUNT 7 [facility] COMPLETE INC INC AUTO&AUTO DIFRNTL WBC CULTURE 45972 [facility] FRAZ[facility] BACTERIAL 7 [facility] BLOOD INC INC AEROBIC W/ID ISOLATES RADIOLOGI 90450 [facility] FRAZIER C EXAM 7 [facility] CHEST 2 INC INC VIEWS FRONTAL&L ATERAL RADEX 44379 [facility] RENUSCH RIBS UNI 7 PHYSICIAN W/POSTERO S, PLLC ANT CH MINIMUM 3 VIEWS UNCLASSIF J3490 [facility] FRAZ[facility] IED DRUGS 7 [facility] INC INC COMPREHEN 25519 [facility]RAZIER SIVE 7 [facility] [place] [address] [facility]RAZ[facility] LACTATE 7 [facility] INC INC DEMO&/USMAN 15852 [facility] OF PT 7 [facility] INTERNAL AERSL MED GEN/NEB/I NHLR/IP UNCLASSIF J3490 [facility] FRAZ[facility] IED DRUGS 6 [facility] INC INC RADEX 00461 [facility] IBRAHIMA RIBS UNI 6 MEDICAL W/POSTERO IMAGING ANT CH ASS MINIMUM 3 VIEWS CYANOCOBA 36549 COMBINED COMBINED BARBARA 6 PHYSICIAN PHYSICIAN VITAMIN S LA S LA B-12 [place] [address] COMBINED COMBINED IRON 6 PHYSICIAN PHYSICIAN S LA S LA IRON 04915 COMBINED COMBINED BINDING 6 PHYSICIAN [place] [address] COMBINED COMBINED FERRITIN 6 PHYSICIAN PHYSICIAN S LA S LA BLOOD 95782 COMBINED COMBINED COUNT 6 PHYSICIAN PHYSICIAN COMPLETE S LA S LA AUTO&AUTO DIFRNTL WBC LIPID 76680 COMBINED COMBINED PANEL 6 PHYSICIAN PHYSICIAN S LA S LA COMPREHEN 21588 COMBINED COMBINED SIVE 6 PHYSICIAN PHYSICIAN [place] [address] COMBINED COMBINED THYROID 6 PHYSICIAN PHYSICIAN STIMULATI S LA S LA NG HORMONE TSH THERAPEUT 02095 FR[facility]DIE FRAZIER IC PX 1/> 6 [facility] AREAS INC INC EACH 15 MIN EXERCISES E-STIM G0283 FR[facility]IE FRAZIER 1/> AREAS 6 [facility] OTH THAN INC INC WND CARE PART TX PLAN APPLICATI 78057 [facility] FRA[facility] ON 6 [facility] MODALITY INC INC 1/> AREAS HOT/COLD PACKS PHYSICAL 54215 [facility] THERAPY 6 [facility] EVALUATIO INC INC N CT THORAX 84049 [facility] W/O 6 [facility] CONTRAST INC INC MATERIAL CULTURE 88081 [facility] FNGI 6 [facility] MOLD/YEAS INC INC T PRSMPTV OTH XCPT BLOOD TB CELL 88148 [facility] MEDIATED 6 [facility] ANTIGN INC INC RESPNSE GAMMA INTERFERO N BLOOD 63167 [facility] FRAZIER COUNT 6 [facility] COMPLETE INC INC AUTO&AUTO DIFRNTL WBC SMR PRIM 49116 [facility] SRC 6 [facility] GRAM/GIEM INC INC SA STAIN BCT FUNGI/BARON L COLLECTIO 21083 [facility]RA[facility]IER N VENOUS 6 [facility] BLOOD INC INC VENIPUNCT URE COMPREHEN 84513 [facility] SIVE 6 [facility] METABOLIC INC INC PANEL CUL BACT 19685 [facility]RA[facility] XCPT 6 [facility] URINE INC INC BLOOD/STO OL AEROBIC ISOL CULTURE 98399 [facility] FRA[facility] TUBERCLE/ 6 [facility] OTH INC INC ACID-FAST BACILLI ANY ISOL 3D 40429 [facility]RA[facility]IER RENDERING 5 [facility] W/INTERP INC INC & POSTPROCE SS SUPERVISI ON MRI 92801 FR[facility]DIE FRAZIER SPINAL 5 [facility] CANAL INC INC LUMBAR W/O CONTRAST MATERIAL CT THORAX 40913 [facility] W/O 5 [facility] CONTRAST INC INC MATERIAL NITRIC 95518 [facility] VERA MAR OXIDE 5 [facility] GAS CO DETERMINA TION BRNCDILAT 39660 [facility] VERA MAR RSPSE 5 [facility] SPM[facility] [place] PRE&[place] [address] FR[facility] FRAZIER INFUSION 5 [facility] THERAPY/P INC INC ROPHYLAXI S /DX 1ST TO 1 HR BLOOD 45902 FR[facility]IE CRISTOBALON COUNT 5 [facility] COMPLETE INC INC AUTO&AUTO DIFRNTL WBC THERAPEUT 36937 FREDDIE FREDDIE IC 5 [facility] INJECTION INC [place] [address] FR[facility] FRAZIER LIPASE 5 [facility] [place] [address] FR[facility]DIE FRAZIER ABDOMEN & 5 [facility] PELVIS INC INC W/O CONTRAST MATERIAL INJECTION J2405 FREDDIEPEDRO FRAZIER 5 [facility] ONDANSETR INC INC ON HCL PER 1 MG COMPREHEN 09317 FR[facility]DIE FRAZIER SIVE 5 [facility] [place] [address] FR[facility]DIE [facility]RAZIER AMYLASE 5 [facility] [address] FR[facility]RAZIER THYROID 5 [facility] STIMULATI INC INC [facility] G0378 FR[facility]DIE FRAZIER OBSERVATI 5 [facility] ON INC INC SERVICE PER HOUR UNCLASSIF J3490 FREDDIE FRAZIER IED DRUGS 5 [facility] INC INC SKIN TEST 73707 FR[facility]DIE NIELSEN 5 [facility] SIS INTRADERM AL RADEX 39479 FR[facility]DIE FRAZIER SPINE 5 [facility] THORACIC INC INC 2 VIEWS RADIOLOGI 35932 FR[facility]DIE FRAZIER C EXAM 5 [facility] CHEST 2 INC INC VIEWS FRONTAL&L ATERAL RADEX 51443 FR[facility]DIE FRAZIER SPINE 5 [facility] CERVICAL INC INC 4 OR 5 VIEWS BRNCDILAT 49126 FR[facility] FRAZIER RSPSE 5 [facility] SPMTRY INC INC PRE&POST- BRNCDILAT ADMN ECHO 61939 [facility] FRAZIER TTHRC R-T 5 [facility] 2D INC INC W/WOM-MOD E COMPL SPEC&COLR D GAS 22080 [facility] DILUT/WAS 5 [facility] HOUT LUNG INC INC VOL W/WO DISTRIB VENT&[place] [address] FR[facility] DIFFUSING 5 [facility] CAPACITY INC INC XCAPSULAR 13383 [place] CAP[facility]OR CATARACT 5 MEDICAL SEE RMVL SERV INSJ LENS FOUNDATIO PROSTH 1 N STG ANESTHESI 50672 [place] [facility]REL A EYE 5 MEDICAL PLACIDO LENS SERVICES SURGERY XCAPSULAR 94103 [place] CAPOOR CATARACT 5 MEDICAL SEE RMVL SERV INSJ LENS FOUNDATIO PROSTH 1 N STG ANESTHESI 92410 [facility] A EYE 5 [place] BUD LENS PHYSICIAN SURGERY S ASSIST DEMO&/USMAN 25092 CAROLEE CAROLEE L OF PT 5 SARTHAK DE LEÓN UTILIZ AERSL GEN/NEB/I NHLR/IP BRNCDILAT 21080 CAROLEE CAROLEE RSPSE 5 SARTHAK SARTHAK SPMTRY PRE&POST- BRNCDILAT ADMN PRESSURIZ 38012 CAROLEE CAROLEE ED/NONPRE 5 SARTHAK SARTHAK SSURIZED INHALATIO N TREATMENT NONINVASI 26904 CAROLEE CAROLEE VE 5 SARTHAK SARTHAK EAR/PULSE OXIMETRY SINGLE DETER SPMTRY 85800 CAROLEE CAROLEE W/VC 4 SARTHAK SARTHAK EXPIRATOR Y LOURDES W/WO MXML VOL VNTJ SPMTRY 03186 CAROLEE CAROLEE W/VC 4 SARTHAK SARTHAK EXPIRATOR Y LOURDES W/WO MXML VOL VNTJ PERCUTANE 68044 CAROLEE CAROLEE OUS TESTS 4 SARTHAK SARTHAK W/ALLERGE MARGAUX EXTRACTS INTRACUTA 63271 CAROLEE CAROLEE NEOUS 4 SARTHAK SARTHAK TESTS W/ALLERGE MARGAUX EXTRACTS BRNCDILAT 25207 CAROLEE CAROLEE RSPSE 4 SARTHAK SARTHAK SPMTRY PRE&POST- BRNCDILAT ADMN PRESSURIZ 26781 CAROLEE CAROLEE ED/NONPRE 4 SARTHAK SARTHAK SSURIZED INHALATIO N TREATMENT NONINVASI 49203 CAROLEE CAROLEE VE 4 SARTHAK SARTHAK EAR/PULSE OXIMETRY SINGLE DETER DEMO&/USMAN 30692 CAROLEE CAROLEE L OF PT 4 SARTHAK SARTHAK UTILIZ AERSL GEN/NEB/I NHLR/IP NEBULIZER E0570 [facility] MED WITH 4 EQUIPMENT EQUIPMENT COMPRESSO INC INC R NITRIC 23160 CAROLEE CAROLEE OXIDE 4 SARTHAK SARTHAK GAS DETERMINA TION ADMN SET A7005 [facility] MT MED W/SM VOL 4 EQUIPMENT EQUIPMENT NONFILTR INC INC NEBULIZR NON-DISPB L SPACR A4627 [facility] BAG/RESRV 4 EQUIPMENT EQUIPMENT OR W/WO INC INC MASK W/METRD DOSE INHAL LOCM Q9967 [facility] FRAZIER 300-399 4 [facility] MG/ML INC INC IODINE CONCENTRA TION PER ML COMPREHEN 57126 [facility] FRAZ[facility] SIVE 4 [facility] METABOLIC INC INC PANEL CREATINE 39788 FR[facility]DIE FRAZIER KINASE MB 4 [facility] [place] [address] FERDDIE FRAZIER ANGIOGRAP 4 [facility] HY CHEST INC INC W/CONTRAS T/NONCONT RAST CREATINE 58572 [facility] FRAZIER KINASE 4 [facility] TOTAL INC INC FIBRIN 64086 [facility] DGRADJ 4 [facility] PRODUCTS INC INC D-DIMER QUAL/SEMI SHAUN PROTHROMB 73279 FR[facility]DIE FRAZIER IN TIME 4 [facility] INC INC ECG 63264 FR[facility]DIE FRAZIER ROUTINE 4 [facility] ECG INC INC W/LEAST 12 LDS TRCG ONLY W/O I&R UNCLASSIF J3490 FR[facility]DIE FRAZIER IED DRUGS 4 [facility] INC INC THROMBOPL 17983 FR[facility]DIE FRAZIER ASTIN 4 [facility] TIME INC INC PARTIAL PLASMA/WH OLE BLOOD ECG 24036 FREDDIE MONROE ROUTINE 4 [facility] W/LEAST P 12 LDS I&[place] [address] FREDDIE FRAZIER TROPONIN 4 [facility] QUANTITAT INC INC ANAMIKA BLOOD 66934 FR[facility]DIE FRAZIER COUNT 4 [facility] COMPLETE INC INC AUTO&AUTO DIFRNTL WBC CULTURE 17929 FREDDIE FRAZIER BACTERIAL 4 [facility] BLOOD INC INC AEROBIC W/ID ISOLATES RADIOLOGI 92738 FREDDIE FRAZIER C EXAM 4 [facility] CHEST 2 INC INC VIEWS FRONTAL&L ATERAL RHYTHM 32159 FREDDIE FRAZIER ECG 1-3 4 [facility] LEADS INC INC TRACING ONLY W/O I&R Encounters Encounter Start End Date Code Location Performer Type Date [facility] FREDDIE - 7 7 [facility] EMERGENCY 28877 FREDDIE 7 7 [facility] T VISIT HIGH/URGE NT SEVERITY OFFICE 04912 [facility] 7 7 [facility] VISIT INTERNAL 25 MED MINUTES EMERGENCY 73044 CONNIE ULLOA 6 6 PHYSICIAN CARLEY KRUEGER S [facility] T VISIT HIGH/URGE NT SEVERITY [facility] FREDDIE - 6 6 [facility] EMERGENCY 74785 FREDDIE 6 6 [facility] T VISIT LIMITED/M INOR PROB OFFICE 00086 [facility] 6 6 [facility] T VISIT INTERNAL 15 MED MINUTES OFFICE 33237 [facility] 6 6 [facility] T NEW 45 INTERNAL MINUTES [facility] FR[facility]DIE - 6 6 [facility] T OFFICE 36719 FR[facility]DIE OUTPATIEN 6 6 [facility] T VISIT INC 10 MINUTES HOSPITAL FREDDIE - 6 6 [facility] OUTPATIEN [facility] T OFFICE 61590 DANIEL MONROY [facility] OUTPATIEN 6 6 MD [facility]YANA, T [facility] 45 PSC MINUTES HOSPITAL FREDDIE - 6 6 [facility] FREDDIE - 6 6 [facility] FREDDIE - 5 5 [facility]IE - 5 5 [facility] T OFFICE 40310 [facility] HEAVENLY OUTPATIEN 5 5 PHYSICIAN RAMON T VISIT S GROUP 10 MINUTES OFFICE 42090 [facility] VERA MAR OUTPATIEN 5 5 PARTNERS T VISIT OF BRAGG 25 CO MINUTES OFFICE 19804 [facility] OUTPATIEN 5 5 PHYSICIAN RAMON T VISIT S GROUP 25 MINUTES OFFICE 18734 [facility] SCHULSTAD OUTPATIEN 5 5 PHYSICIAN CAM T NEW 45 S GROUP MINUTES EMERGENCY [id number] [facility] DEPT 5 5 [facility] VISIT INC HIGH SEVERITY& THREAT [facility] - [facility] T OFFICE 34659 [facility] TRA CONSULTAT 5 5 [place] I[place] ORTHOPAED NEW/ESTAB [facility]CS PLC PATIENT 40 MIN OFFICE 05593 [facility] OUTPATIEN 5 5 PHYSICIAN RAMON T VISIT 5 S GROUP MINUTES OFFICE 68202 [facility] NIELSEN OUTPATIEN 5 5 [facility] T VISIT 5 HOSPITAL MINUTES [facility] T [facility] T OFFICE 85648 GUILLERMINA SARMIENTO OUTPATIEN 5 5 MAO MAO T VISIT 15 MINUTES OFFICE 26410 CARO[facility] CAROLEE OUTPATIEN 5 5 SARTHAK SARTHAK T VISIT 25 MINUTES OFFICE 92690 [facility] CAROLEE OUTPATIEN 4 4 SARTHAK SARTHAK T VISIT 25 MINUTES OFFICE 35432 [facility] CAROLEE OUTPATIEN 4 4 SARTHAK SARTHAK T VISIT 25 MINUTES OFFICE 63301 CARO[facility] CAROLEE CONSULTAT 4 4 SARTHAK SARTHAK ION NEW/ESTAB PATIENT 80 MIN OFFICE 43682 [facility]ION[facility]UB[facility] GUILLERMINA OUTPATIEN 4 4 MAO MAO T VISIT 15 MINUTES EMERGENCY 54588 [facility] 4 4 [facility] DEPARTMEN INC T VISIT HIGH/URGE NT SEVERITY [facility] T [facility] 90478 [facility] JACKIE GAFFNEY VISIT EMERGENCY HIGH PHYS SEVERITY& THREAT FUNCJ
--- OUTSIDE RECORDS SUMMARY | 2017-05-25 06:45 | External Medical Summary Rpt ---
Author Author , GERARDO Organization GERARDO Address Unknown Phone [email or web address] Care Team Providers Care Customer Service Manager Name Role Phone [facility] Unavailable [...] PLACIDO BOYD BUD, BOYD Unavailable Unavailable BUD [facility] Unavailable Unavailable INC, [facility] Unavailable Unavailable HOSPITAL P, [facility], Unavailable Unavailable [facility] VILLALOBOS TRA, VILLALOBOS TRA Unavailable Unavailable [facility], Unavailable Unavailable [facility] ELIANA CRI, ELIANA CRI Unavailable Unavailable EDMUNDO JR, EDMUNDO JR Unavailable Unavailable [facility] Unavailable Unavailable INTERNAL MED, [facility] CAROLEE SARTHAK, Unavailable Unavailable CAROLEE SARTHAK CAROLEE SARTHAK, Unavailable Unavailable CAROLEE SARTHAK [facility], Unavailable Unavailable [facility] Unavailable Unavailable PLL[facility], [facility] RENUSCH, RENUSCH Unavailable Unavailable RENUSCH CARLEY, RENUSCH Unavailable Unavailable CARLEY SCHULSTAD CAM, Unavailable Unavailable SCHULSTAD CAM [facility] Unavailable [facility]available [facility], [facility]available Unavailable ASSIST, [facility] VERA MAR, VERA MAR Unavailable Unavailable Purpose Continuity of Care Document - 02-18-2014 through 2016 Problems Code Diagnosis DOS Provider Status D649 ANEMIA 01-12-2017 [facility] P J209 ACUTE 01-12-2017 [facility] P K219 GASTRO-ESOP 01-12-2017 [facility] H REFLUX [facility] P WITHOUT ESOPHAGITIS R071 CHEST PAIN 01-12-2017 [facility] [id number] CONTUSION 01-12-2017 [facility] RT FRONT [facility], WALL THORAX PLLC INITIAL ENCOUNTER [id number] STRAIN 01-12-2017 [facility] MUSCLE & [facility]YS[facility], TENDON PLLC FRONT WALL THORAX INIT Z720 TOBACCO USE 01-12-2017 [facility] P E039 HYPOTHYROID 11-15-[address] UNSPECIFIED INTERNAL MED J431 PANLOBULAR 11-15-[address] INTERNAL MED J9801 ACUTE 11-15-2016 [facility] INTER[facility] MED R0781 PLEURODYNIA 11-15-[address] INTERNAL MED E538 DEFICIENCY 07-06-2016 [facility] OTHER PHYSICIANS SPECIFIED B LA GROUP VITAMINS E43 UNSPECIFIED 07-05-2016 [facility] SEVERE PHYSICIANS PROTEIN-DAIJA LA ORIE MALNUTRITIO N G8929 OTHER 04-05-[address] PAIN INTERNAL MED R079 CHEST PAIN 04-05-[address] INTERNAL MED M542 CERVICALGIA 01-13-2016 [facility] M549 DORSALGIA 01-13-2016 [facility] [id number] SPONDYLOSIS 01-05-2016 DANIEL TURPIN W/O , PSC MYELOPATH/R ADICULOPATH Y LUMB RGN M479 SPONDYLOSIS 01-05-2016 [facility] M5136 OTH 01-05-2016 SANDHYA HARDWICK MD, PSC RAL DISC DEGEN LUMBAR REGION J439 EMPHYSEMA 11-24-2015 [facility] R634 ABNORMAL 11-24-2015 [facility] WEIGHT [facility] R918 OTHER 11-24-2015 [facility] NONSPECIFIC [facility]AL [facility] FINDING OF LUNG FIELD J449 CHRONIC 11-17-2015 [facility]CTIVE [facility] PULMONARY INC DISEASE UNS R96019 OTHER 09-15-2015 [facility] LUMBAR IMAGING [...] [place] UNCOMPLICAT ED R011 CARDIAC 07-29-2015 [facility] UNSPECIFIED GROUP K5660 UNSPECIFIED 07-24-2015 [facility] OBSTRUCTION R109 UNSPECIFIED 07-24-2015 [facility] R112 NAUSEA WITH 07-24-2015 [facility]NSPECIFIED [facility]ING [facility] R188 OTHER 07-24-2015 [facility] R938 ABNORMAL 07-14-2015 [facility] FIND ON DX PHYSICIANS IMAGING OTH GROUP SPEC BODY STRCT 496 CHRONIC 07-09-2015 [facility] OBSTRUCTION INC NEC 5110 PLEURISY 07-09-2015 [facility] WITHOUT MEDICAL MENTION [facility] EFFUS/CURRE NT TB 7210 CERVICAL 07-09-2015 [facility]YL[facility] WITHOUT IMAGING ASS MYELOPATHY 7231 CERVICALGIA 07-09-2015 [facility] 7245 UNSPECIFIED 07-09-2015 [facility] 77216 SHORTNESS 07-09-2015 [facility] OF [facility] 7862 COUGH 07-09-2015 [facility] 3669 UNSPECIFIED 05-27-2015 [facility] CATARACT [facility] 47743 MIOSIS , 05-27-2015 [facility] MEDICAL NOT DUE TO SERVICES MIOTICS 73629 TOTAL OR 03-25-2015 [facility] MATURE PHYSICIANS SENILE ASSIST CATARACT 4660 ACUTE 01-16-2015 [facility] MAO BRONCHITIS 4770 ALLERGIC 12-17-2014 CAROLEE RHINITIS SARTHAK DUE TO POLLEN 4778 ALLERGIC 12-17-2014 CARO[facility]E RHINITIS SARTHAK DUE TO OTHER ALLERGEN 4919 UNSPECIFIED 12-17-2014 CAROLEE CHRONIC SARTHAK BRONCHITIS 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 04833 OTHER 05-23-2014 CARO[facility]E MALAISE AND SARTHAK FATIGUE V727 DIAGNOSTIC 05-23-2014 CARO[facility]E SKIN AND SARTHAK SENSITIZATI ON TESTS 79522 OBSTRUCTIVE 04-20-2014 [facility] MAO CHRONIC BRONCHITIS WITH EXACERBATIO N 28376 ASTHMA 04-20-2014 [facility] UNSPECIFIED WITH STATUS ASTHMATICUS 41939 OTHER 02-18-2014 [facility] N EMERGENCY [...] BE 68 04 05 15 5 00 VT Ac NZ 38 -0 -0 .0 00 L- ti ON 20 6- 5- 00 07 MA ve AT 24 20 20 48 RT AT 70 17 17 07 E 1 78 PH 10 AR 0 MA MG CY CA #5 PS 91 UL E NY 13 04 05 14 7 00 VT Ac NO 66 -0 -0 .0 00 L- ti CY 80 6- 5- 00 07 MA ve CL 48 20 20 48 RT IN 45 17 17 07 E 0 79 PH 10 AR 0 MA MG CY CA #5 PS 91 UL E HI 00 04 05 10 5 00 VT Ac ED 14 -0 -0 .0 00 L- ti NI 39 6- 5- 00 07 MA ve SO 73 20 20 48 RT NE 80 17 17 07 5 80 PH 20 AR MA MG CY TA #5 BL 91 ET GA 53 04 04 30 30 00 VT Ac BA 74 -0 -2 .0 00 L- ti PE 60 4- 8- 00 07 MA ve NT 10 20 20 47 RT IN 10 17 17 93 5 35 PH 10 AR 0 MA MG CY CA #5 PS 91 UL E [place] 57 03 04 30 30 00 VT Ac RT 23 -2 -2 .0 00 L- ti AZ 70 9- 1- 00 07 MA ve AP 00 20 20 47 RT IN 93 17 17 92 E 0 80 PH 30 AR MA MG CY TA #5 BL 91 ET GA 53 03 04 30 30 00 VT Ac BA 74 -1 -0 .0 00 L- ti PE 60 2- 7- 00 07 MA ve NT 10 20 20 47 RT IN 10 17 17 14 5 25 PH 10 AR 0 MA MG CY CA #5 PS 91 UL E SP 00 02 03 30 30 00 VT Ac IR 59 -2 -2 .0 00 [...] 17 17 32 E 5 67 PH HI AR OP MA CY 50 #5 MC 91 G SP RA Y SY 00 02 03 10 30 00 VT Ac MB 18 -2 -2 .1 00 L- ti IC 60 8- 4- 99 07 MA ve OR 37 20 20 42 RT T 02 17 17 12 16 0 63 PH 0- AR 4. MA 5 CY MC G #5 IN 91 SIN LE R LE 00 02 03 30 30 00 VT Ac VO 78 -2 -2 .0 00 L- ti TH 15 8- 4- 00 07 MA ve YR 18 20 20 44 RT OX 49 17 17 36 IN 2 41 PH E AR 10 MA 0 CY MC G #5 TA 91 BL ET PA 68 02 03 30 30 00 VT Ac RO 38 -2 -2 .0 00 L- ti XE 20 8- 4- 00 07 MA ve TI 09 20 20 44 RT NE 80 17 17 59 6 61 PH HC AR L MA 20 CY MG #5 91 TA BL ET GA 53 02 03 30 30 00 VT Ac BA 74 -1 -1 .0 00 L- ti PE 60 7- 7- 00 07 MA ve NT 10 20 20 47 RT IN 10 17 17 14 5 25 PH 10 AR 0 MA MG CY CA #5 PS 91 UL E LE 00 01 02 30 30 00 VT Ac VO 78 -0 -0 .0 00 [...] GA 65 01 02 30 30 00 VT Ac BA 16 -0 -0 .0 00 L- ti PE 20 5- 3- 00 07 MA ve NT 10 20 20 44 RT IN 15 17 17 18 0 71 PH 10 AR 0 MA MG CY CA #5 PS 91 UL E Procedures Procedure DOS Code Location Performer Comment THER 43694 FREDDIE FRAZIER PROPH/DX 7 [facility] NJX IV INC INC PUSH SINGLE/1S T SBST/DRUG THERAPEUT 71139 FREDDIE FRAZIER IC 7 [facility] INJECTION INC INC IV PUSH EACH NEW DRUG ECG 54940 FREDDIE FRAZIER ROUTINE 7 [facility] ECG INC INC W/LEAST 12 LDS TRCG ONLY W/O I&R ECG 67842 FREDDIE WYATT JR ROUTINE 7 [facility] W/LEAST P 12 LDS I&[place] [address] FREDDIE FRAZIER TROPONIN 7 [facility] QUANTITAT INC INC ANAMIKA BLOOD 11031 FREDDIE FRAZIER COUNT 7 [facility] COMPLETE INC INC AUTO&AUTO DIFRNTL WBC CULTURE 84352 FREDDIE FRAZIER BACTERIAL 7 [facility] BLOOD INC INC AEROBIC W/ID ISOLATES RADIOLOGI 72941 FREDDIE FRAZIER C EXAM 7 [facility] CHEST 2 INC INC VIEWS FRONTAL&L ATERAL RADEX 50076 CON[facility] RENUSCH RIBS UNI 7 PHYSICIAN W/POSTERO S, PLLC ANT CH MINIMUM 3 VIEWS UNCLASSIF J3490 FREDDIE FRAZIER IED DRUGS 7 [facility] INC INC COMPREHEN 87748 FREDDIE FRAZIER SIVE 7 [facility] [place] [address] FREDDIE FRAZIER LACTATE 7 [facility] INC INC DEMO&/USMAN 47032 [facility] OF PT 7 [facility] INTERNAL AERSL MED GEN/NEB/I NHLR/IP UNCLASSIF J3490 FREDDIE FRAZIER IED DRUGS 6 [facility] INC INC RADEX 23351 [facility] IBRAHIMA RIBS UNI 6 MEDICAL W/POSTERO IMAGING ANT CH ASS MINIMUM 3 VIEWS CYANOCOBA 95510 COMBINED COMBINED BARBARA 6 PHYSICIAN PHYSICIAN VITAMIN S LA S LA B-12 [place] [address] COMBINED COMBINED IRON 6 PHYSICIAN PHYSICIAN S LA S LA IRON 90836 COMBINED COMBINED BINDING 6 PHYSICIAN [place] [address] COMBINED COMBINED FERRITIN 6 PHYSICIAN PHYSICIAN S LA S LA BLOOD 18974 COMBINED COMBINED COUNT 6 PHYSICIAN PHYSICIAN COMPLETE S LA S LA AUTO&AUTO DIFRNTL WBC LIPID 47664 COMBINED COMBINED PANEL 6 PHYSICIAN PHYSICIAN S LA S LA COMPREHEN 36688 COMBINED COMBINED SIVE 6 PHYSICIAN PHYSICIAN [place] [address] COMBINED COMBINED THYROID 6 PHYSICIAN PHYSICIAN STIMULATI S LA S LA NG HORMONE TSH THERAPEUT 18109 FREDDIE FRAZIER IC PX 1/> 6 [facility] AREAS INC INC EACH 15 MIN EXERCISES E-STIM G0283 FREDDIE FRAZIER 1/> AREAS 6 [facility] OTH THAN INC INC WND CARE PART TX PLAN APPLICATI 44983 FREDDIE FRAZIER ON 6 [facility] MODALITY INC INC 1/> AREAS HOT/COLD PACKS PHYSICAL 96846 FREDDIE FRAZIER THERAPY 6 [facility] EVALUATIO INC INC N CT THORAX 43824 FREDDIE FRAZIER W/O 6 [facility] CONTRAST INC INC MATERIAL CULTURE 08834 FREDDIE FRAZIER FNGI 6 [facility] MOLD/YEAS INC INC T PRSMPTV OTH XCPT BLOOD TB CELL 62997 FREDDIE FRAZIER MEDIATED 6 [facility] ANTIGN INC INC RESPNSE GAMMA INTERFERO N BLOOD 86017 FREDDIE FRAZIER COUNT 6 [facility] COMPLETE INC INC AUTO&AUTO DIFRNTL WBC SMR PRIM 11689 FREDDIE FRAZIER SRC 6 [facility] GRAM/GIEM INC INC SA STAIN BCT FUNGI/BARON L COLLECTIO 11352 FREDDIE FRAZIER N VENOUS 6 [facility] BLOOD INC INC VENIPUNCT URE COMPREHEN 83166 FREDDIE FRAZIER SIVE 6 [facility] METABOLIC INC INC PANEL CUL BACT 80440 FREDDIE FRAZIER XCPT 6 [facility] URINE INC INC BLOOD/STO OL AEROBIC ISOL CULTURE 38357 FREDDIE FRAZIER TUBERCLE/ 6 [facility] OTH INC INC ACID-FAST BACILLI ANY ISOL 3D 67927 FREDDIE FRAZIER RENDERING 5 [facility] W/INTERP INC INC & POSTPROCE SS SUPERVISI ON MRI 71255 FREDDIE FRAZIER SPINAL 5 [facility] CANAL INC INC LUMBAR W/O CONTRAST MATERIAL CT THORAX 43713 FREDDIE FRAZIER W/O 5 [facility] CONTRAST INC INC MATERIAL NITRIC 45733 ALLERGY VERA MAR OXIDE 5 [facility] GAS CO DETERMINA TION BRNCDILAT 10781 ALLERGY VERA MAR RSPSE 5 PARTNERS SPMTRY OF [place] PRE&[place] [address] FREDDIE FRAZIER INFUSION 5 [facility] THERAPY/P INC INC ROPHYLAXI S /DX 1ST TO 1 HR BLOOD 40853 FREDDIE CRISTOBALON COUNT 5 [facility] COMPLETE INC INC AUTO&AUTO DIFRNTL WBC THERAPEUT 40740 FREDDIE FREDDIE IC 5 [facility] INJECTION INC [place] [address] FREDDIE FRAZIER LIPASE 5 [facility] [place] [address] FREDDIE FRAZIER ABDOMEN & 5 [facility] PELVIS INC INC W/O CONTRAST MATERIAL INJECTION J2405 FREDDIEPEDRO FRAZIER 5 [facility] ONDANSETR INC INC ON HCL PER 1 MG COMPREHEN 43306 FREDDIE FRAZIER SIVE 5 [facility] [place] [address] FREDDIE [facility]RAZIER AMYLASE 5 [facility] [place] [address] FREDDIE FRAZIER THYROID 5 [facility] STIMULATI INC INC NG [facility] G0378 FREDDIE FRAZIER OBSERVATI 5 [facility] ON INC INC SERVICE PER HOUR UNCLASSIF J3490 FREDDIE FRAZIER IED DRUGS 5 [facility] INC INC SKIN TEST 54348 FREDDIE NIELSEN 5 [facility] INTRADERM AL RADEX 83219 FREDDIE FRAZIER SPINE 5 [facility] THORACIC INC INC 2 VIEWS RADIOLOGI 23866 FREDDIE FRAZIER C EXAM 5 [facility] CHEST 2 INC INC VIEWS FRONTAL&L ATERAL RADEX 64019 FREDDIE FRAZIER SPINE 5 [facility] CERVICAL INC INC 4 OR 5 VIEWS BRNCDILAT 71301 FREDDIE FRAZIER RSPSE 5 [facility] SPMTRY INC INC PRE&POST- BRNCDILAT ADMN ECHO 18518 FREDDIE FRAZIER TTHRC R-T 5 [facility] 2D INC INC W/WOM-MOD E COMPL SPEC&COLR D GAS 59546 FREDDIE FRAZIER DILUT/WAS 5 [facility] HOUT LUNG INC INC VOL W/WO DISTRIB VENT&[place] [address] FREDDIE FRAZIER DIFFUSING 5 [facility] CAPACITY INC INC XCAPSULAR 25787 [place] CAPOOR CATARACT 5 MEDICAL SEE RMVL SERV INSJ LENS FOUNDATIO PROSTH 1 N STG ANESTHESI 85740 [place] GAMBREL A EYE 5 MEDICAL PLACIDO LENS SERVICES SURGERY XCAPSULAR 91354 [place] CAPOOR CATARACT 5 MEDICAL SEE RMVL SERV INSJ LENS FOUNDATIO PROSTH 1 N STG ANESTHESI 98583 [facility] A EYE 5 [place] BUD LENS PHYSICIAN SURGERY S ASSIST DEMO&/USMAN 01424 CAROLEE CAROLEE L OF PT 5 SARTHAK DE LEÓN UTILIZ AERSL GEN/NEB/I NHLR/IP BRNCDILAT 43294 CAROLEE CAROLEE RSPSE 5 SARTHAK SARTHAK SPMTRY PRE&POST- BRNCDILAT ADMN PRESSURIZ 76429 CAROLEE CAROLEE ED/NONPRE 5 SARTHAK SARTHAK SSURIZED INHALATIO N TREATMENT NONINVASI 17192 CAROLEE CAROLEE VE 5 SARTHAK SARTHAK EAR/PULSE OXIMETRY SINGLE DETER SPMTRY 09971 CAROLEE CAROLEE W/VC 4 SARTHAK SARTHAK EXPIRATOR Y LOURDES W/WO MXML VOL VNTJ SPMTRY 27933 CAROLEE CAROLEE W/VC 4 SARTHAK SARTHAK EXPIRATOR Y LOURDES W/WO MXML VOL VNTJ PERCUTANE 45943 CAROLEE CAROLEE OUS TESTS 4 SARTHAK SARTHAK W/ALLERGE MARGAUX EXTRACTS INTRACUTA 19253 CAROLEE CAROLEE NEOUS 4 SARTHAK SARTHAK TESTS W/ALLERGE MARGAUX EXTRACTS BRNCDILAT 76085 CAROLEE CAROLEE RSPSE 4 SARTHAK SARTHAK SPMTRY PRE&POST- BRNCDILAT ADMN PRESSURIZ 70055 CAROLEE CAROLEE ED/NONPRE 4 SARTHAK SARTHAK SSURIZED INHALATIO N TREATMENT NONINVASI 45671 CAROLEE CAROLEE VE 4 SARTHAK SARTHAK EAR/PULSE OXIMETRY SINGLE DETER DEMO&/USMAN 51823 CAROLEE CAROLEE L OF PT 4 SARTHAK SARTHAK UTILIZ AERSL GEN/NEB/I NHLR/IP NEBULIZER E0570 [facility] MED WITH 4 EQUIPMENT EQUIPMENT COMPRESSO INC INC R NITRIC 53154 CAROLEE CAROLEE OXIDE 4 SARTHAK SARTHAK GAS DETERMINA TION ADMN SET A7005 [facility] [place] MED W/SM VOL 4 EQUIPMENT EQUIPMENT NONFILTR INC INC NEBULIZR NON-DISPB L SPACR A4627 [facility] BAG/RESRV 4 EQUIPMENT EQUIPMENT OR W/WO INC INC MASK W/METRD DOSE INHAL LOCM Q9967 FREDDIE FRAZIER 300-399 4 [facility] MG/ML INC INC IODINE CONCENTRA TION PER ML COMPREHEN 40043 FREDDIE FRAZIER SIVE 4 [facility] METABOLIC INC INC PANEL CREATINE 39223 FREDDIE FRAZIER KINASE MB 4 [facility] [place] [address] FREDDIE FRAZIER ANGIOGRAP 4 [facility] HY CHEST INC INC W/CONTRAS T/NONCONT RAST CREATINE 43186 FREDDIE FRAZIER KINASE 4 [facility] TOTAL INC INC FIBRIN 02471 FREDDIE FRAZIER DGRADJ 4 [facility] PRODUCTS INC INC D-DIMER QUAL/SEMI SHAUN PROTHROMB 56835 FREDDIE FRAZIER IN TIME 4 [facility] INC INC ECG 01095 FREDDIE FRAZIER ROUTINE 4 [facility] ECG INC INC W/LEAST 12 LDS TRCG ONLY W/O I&R UNCLASSIF J3490 FREDDIE FRAZIER IED DRUGS 4 [facility] INC INC THROMBOPL 07876 FREDDIE FRAZIER ASTIN 4 [facility] TIME INC INC PARTIAL PLASMA/WH OLE BLOOD ECG 88558 FREDDIE MONROE ROUTINE 4 [facility] W/LEAST P 12 LDS I&[place] [address] FREDDIE FRAZIER TROPONIN 4 [facility] QUANTITAT INC INC ANAMIKA BLOOD 04210 FREDDIE FRAZIER COUNT 4 [facility] COMPLETE INC INC AUTO&AUTO DIFRNTL WBC CULTURE 66128 FREDDIE FRAZIER BACTERIAL 4 [facility] BLOOD INC INC AEROBIC W/ID ISOLATES RADIOLOGI 70656 FREDDIE FRAZIER C EXAM 4 [facility] CHEST 2 INC INC VIEWS FRONTAL&L ATERAL RHYTHM 28733 RFEDDIE FRAZIER ECG 1-3 4 [facility] LEADS INC INC TRACING ONLY W/O I&R Encounters Encounter Start End Date Code Location Performer Type Date [facility] FREDDIE - 7 7 [facility] 57642 FREDDIE 7 7 [facility] T VISIT HIGH/URGE NT SEVERITY OFFICE 10168 [facility] 7 7 [facility] VISIT INTERNAL 25 MED MINUTES EMERGENCY 81102 CONNIE ULLOA 6 6 PHYSICIAN CARLEY KRUEGER S [facility] T VISIT HIGH/URGE NT SEVERITY [facility] FREDDIE - 6 6 [facility] 44220 FREDDIE 6 6 [facility] T VISIT LIMITED/M INOR PROB OFFICE 28868 [facility] 6 6 [facility] T VISIT INTERNAL 15 MED MINUTES OFFICE 80749 [facility] 6 6 [facility] T NEW 45 INTERNAL MINUTES [facility]PITAL FREDDIE - 6 6 [facility] OUTPATIEN [facility] T OFFICE 74116 FREDDIE OUTPATIEN 6 6 [facility] T VISIT INC 10 MINUTES HOSPITAL FREDDIE - 6 6 [facility] OUTPATIEN [facility] T OFFICE 34786 DANIEL MONROY [facility] OUTPATI[facility] 6 6 MD DYANA, T [facility] 45 PSC MINUTES HOSPITAL FREDDIE - 6 6 [facility] OUTPATIEN [facility] FREDDIE [facility] 6 6 [facility] OUTPATIEN [facility] FREDDIE [facility] 5 5 [facility] OUTPATIEN [facility] FREDDIE [facility] 5 5 [facility] OUTPATIEN [facility] T OFFICE 20124 [facility] HEAV[facility]LY OUTPATIEN 5 5 PHYSICIAN RAMON T VISIT S GROUP 10 MINUTES OFFICE 57154 ALLER[facility] VERA MAR OUTPATIEN 5 5 PARTNERS T VISIT OF BRAG[place] 25 CO MINUTES OFFICE 15443 [facility] OUTPATIEN 5 5 PHYSICIAN RAMON T VISIT S GROUP 25 MINUTES OFFICE 24695 [facility] SCHULSTAD OUTPATIEN 5 5 PHYSICIAN CAM T NEW 45 S GROUP MINUTES EMERGENCY 38552 FREDDIE DEPT 5 5 [facility] VISIT INC HIGH SEVERITY& THREAT [facility] FREDDIE - 5 5 [facility] OUTPATIEN [facility] T OFFICE 00535 [facility] CONSULTAT 5 5 [place] [facility] NEW/ESTAB [facility] PATIENT 40 MIN OFFICE 61785 [facility] OUTPATIEN 5 5 PHYSICIAN RAMON T VISIT 5 S GROUP MINUTES OFFICE 31674 FREDDIE NIELSEN OUTPATIEN 5 5 [facility] T VISIT 5 HOSPITAL MINUTES HOSPITAL FREDDIE - 5 5 [facility] OUTPATIEN INC T HOSPITAL FREDDIE - 5 5 [facility] OUTPATIEN INC T OFFICE 90557 GUILLERMINA SARMIENTO OUTPATIEN 5 5 MAO MAO T VISIT 15 MINUTES OFFICE [id number] CAROLEE CAROLEE OUTPATIEN 5 5 SARTHAK SARTHAK T VISIT 25 MINUTES OFFICE [id number] CAROLEE CAROLEE OUTPATIEN 4 4 SARTHAK SARTHAK T VISIT 25 MINUTES OFFICE 57571 CAROLEE CAROLEE OUTPATIEN 4 4 SARTHAK SARTHAK T VISIT 25 MINUTES OFFICE 42050 CAROLEE CAROLEE CONSULTAT 4 4 SARTHAK SARTHAK ION NEW/ESTAB PATIENT 80 MIN OFFICE [id number] [facility] GUILLERMINA OUTPATIEN 4 4 MAO MAO T VISIT 15 MINUTES EMERGENCY [id number] [facility] 4 4 [facility] DEPART[facility] T VISIT HIGH/URGE NT SEVERITY [facility]OSPITAL [facility] - 4 4 [facility] OUTPATIEN [facility] T EMERGENCY [id number] [facility] PEORIAT 4 4 JACKIE GAFFNEY VISIT EMERGENCY HIGH PHYS SEVERITY& THREAT FUNCJ
--- OUTSIDE RECORDS SUMMARY | 2017-05-25 06:46 | External Medical Summary Rpt ---
Author Author [facility] Ward, [employer] Organization [employer] Address Unknown Phone Unavailable
--- OUTSIDE RECORDS SUMMARY | 2017-05-25 06:46 | External Medical Summary Rpt ---
Demographics Preferred Language Cuban Marital Status Unknown Synagogue Affiliation Unknown Race Unknown Ethnic Group Unknown Author Author , RENETTA CARRILLO Address Unknown Phone [email or web address] Immunization Name Date Rout CVX Reac Dose Comm Prov Is Faci e tion ent ider Refu lity Give sed n Td 03-0 9 999 Hist H149 No H149 (nakia 6-19 ori lt), 97 al Info adso rmat rbed ion - Sour ce Unsp ecif ied
--- OUTSIDE RECORDS SUMMARY | 2017-05-25 06:46 | External Medical Summary Rpt ---
Demographics Preferred Language Salvadorean Marital Status Unknown Scientologist Affiliation Unknown Race Unknown Ethnic Group Unknown Author Author , RENETTA CARRILLO Address Unknown Phone [email or web address] Immunization Name Date Rout CVX Reac Dose Comm Prov Is Faci e tion ent ider Refu lity Give sed n Td 03-0 9 999 Hist H149 No H149 (nakia 6-19 ori lt), 97 al Info adso rmat rbed ion - Sour ce Unsp ecif ied
--- NOTE | 2017-05-25 07:14 | Emergency Room Report ---
History of Present Illness Time Seen by [id number] Presenting Problem in Triage Pt arrived:Wheelchair Presenting Problem:Pt reports she fell around 1300 yesterday and has had increasing leg pain since. 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 N Clinical Suspician of Infection? N Mental Status: 1 - Regular (Normal Baseline) Sepsis Risk:Possible Sepsis Risk Have you (or family members/close friends) recently traveled outside the [place]? N If Yes, where/when: Have you had exposure to infectious disease within the past month? N TB? Other? Specify: Source patient, RN notes reviewed, family, old records Exam Limitations no limitations Comment pt fell with pain to rt lat knee pain but denied any hip pain Cardiac Chest Pain Chest pain indicative of cardiac No Timing/Duration this evening Severity moderate ALLERGIES Coded Allergies: No Known Allergies (08/13/16) Home Medications Active Scripts BENZONATATE (Benzonatate) 100 MG PO TID #15 CAP Prov: 01/13/17 Prednisone (Prednisone 20MG) 20 MG PO BID #10 TAB Prov: 01/13/17 Minocycline Hcl (Minocycline 100MG. Capsule) 100 MG PO BID #14 CAP Prov: 01/13/17 Reported Medications BUDESONIDE/FORMOTEROL FUMARATE (Symbicort 160-4.5 Mcg Inhaler) 1 PUFF IH BID Tiotropium [place] (Spiriva) 1 PUFF IH DAILY Levothyroxine Sodium (Synthroid 0.05MG) 0.05 MG PO DAILY FLUTICASONE/VILANTEROL (Breo Ellipta 100-25 Mcg INH) 1 POW IH DAILY Gabapentin (Gabapentin 100MG) (Unknown Dose) PO QHS History Medical History General CAD? No Angina: No [place]: No Hypertension? No Hyperlipidemia? No CHF? No DVT? No PE? No COPD? Yes Asthma? Yes Anemia? Yes GERD? Yes Gastric ulcers? No GI Bleed? No Hernia? No Thyroid Problems? Yes Hypothyroidism? Yes CVA? No Seizures? No Diabetes? No Insulin Dependent: No Insulin Pump: No Home FSBS? No Renal Insuffiency? No End Stage Renal Disease? No UTI? No Stones? No BPH? No GB Disease: No Nephritic Syndrome? No Asplenia? No Hepatitis? No Sickle Cell Disease? No Arthritis? No Migraines? No Cataracts? No Glaucoma? No MRSA? No HIV? No TB? No Anxiety? No Depression? No Cancer? No More? 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 Respiratory denies cough, denies shortness of breath, denies wheezing Cardiovascular denies chest pain, denies syncope Gastrointestinal denies abdominal pain, denies diarrhea, denies vomiting Genitourinary denies: dysuria, frequency, hesitancy, hematuria. Musculoskeletal see HPI, denies back pain, joint pain, denies joint swelling, denies neck pain Skin denies rash Psychiatric/Neurological denies headache, denies seizure Physical Exam Vital Signs Vital Signs Date Time Temp Pulse Resp B/P Pulse O2 O2 Flow FiO2 Ox Delivery Rate 05/25 0710 88 20 119/50 91 05/25 0613 97.6 103 20 119/57 91 - WBC >12,000 or <4,000 or 10% bands? 2 or more SIRS Criteria Met? B/P:119/50 MAP:77 Creatinine >2.0? UA output<0.5ml/kg/hr for 2 hrs? Platelet count >100,000? Lactate >2.0mmol/1? INR >1.2 or PTT > than 60 sec? Evidence of Organ Dysfunction? Provider documented clinical suspician of infection? N Sepsis Criteria Count: 2 Sepsis Risk: Possible Sepsis Risk General Appearance no apparent distress Eye Exam - bilateral eye PERRL, bilateral eye EOMI Ear, Nose, Throat normal ENT inspection Neck supple Respiratory Status No: respiratory distress. Lung Sounds bilateral: lungs clear. 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 No Results/Orders Current Medication Orders Sig/Roddy Start time Last Medication Dose Route Stop Time Status Admin Acetaminophen 650 MG ONCE ONE 05/25 630 DC 05/25 PO 05/25 Acetaminophen 0 .STK-MED ONE 05/25 618 DC PO Orders Procedure Date/time Status LOWER LEG-RT 05/25 627 Active KNEE-3 VIEWS-RT 05/25 627 Active XRAY/CT/US XRAY/CT/US XRAY knee, leg XR interpretation by reviewed by me Xray Results no fracture seen Departure Departure Time of Disposition 732 Disposition DC Home or Self Care(routine) Clinical Impression Primary Impression: Right knee sprain Qualifiers: Encounter type: initial encounter Involved ligament of knee: unspecified ligament Qualified Code: S83.91XA - Sprain of unspecified site of right knee, initial encounter Condition STABLE Referrals Jacob Quintero MD (Family) Patient Instructions DI for Knee Sprain Additional Instructions ice and wt bearing as kylah and see pcp for follow up Discharge Counseling Counseled pt/family regarding diagnosis, test results, medications/RX, follow up needs ED Critical Care Critical Care No at 0735
--- NOTE | 2017-05-25 07:14 | Emergency Room Report ---
History of Present Illness Time Seen by [id number] Presenting Problem in Triage Pt arrived:Wheelchair Presenting Problem:Pt reports she fell around 1300 yesterday and has had increasing leg pain since. 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 N Clinical Suspician of Infection? N Mental Status: 1 - Regular (Normal Baseline) Sepsis Risk:Possible Sepsis Risk Have you (or family members/close friends) recently traveled outside the [place]? N If Yes, where/when: Have you had exposure to infectious disease within the past month? N TB? Other? Specify: Source patient, RN notes reviewed, family, old records Exam Limitations no limitations Comment pt fell with pain to rt lat knee pain but denied any hip pain Cardiac Chest Pain Chest pain indicative of cardiac No Timing/Duration this evening Severity moderate ALLERGIES Coded Allergies: No Known Allergies (08/13/16) Home Medications Active Scripts BENZONATATE (Benzonatate) 100 MG PO TID #15 CAP Prov: 01/13/17 Prednisone (Prednisone 20MG) 20 MG PO BID #10 TAB Prov: 01/13/17 Minocycline Hcl (Minocycline 100MG. Capsule) 100 MG PO BID #14 CAP Prov: 01/13/17 Reported Medications BUDESONIDE/FORMOTEROL FUMARATE (Symbicort 160-4.5 Mcg Inhaler) 1 PUFF IH BID Tiotropium [place] (Spiriva) 1 PUFF IH DAILY Levothyroxine Sodium (Synthroid 0.05MG) 0.05 MG PO DAILY FLUTICASONE/VILANTEROL (Breo Ellipta 100-25 Mcg INH) 1 POW IH DAILY Gabapentin (Gabapentin 100MG) (Unknown Dose) PO QHS History Medical History General CAD? No Angina: No [place]: No Hypertension? No Hyperlipidemia? No CHF? No DVT? No PE? No COPD? Yes Asthma? Yes Anemia? Yes GERD? Yes Gastric ulcers? No GI Bleed? No Hernia? No Thyroid Problems? Yes Hypothyroidism? Yes CVA? No Seizures? No Diabetes? No Insulin Dependent: No Insulin Pump: No Home FSBS? No Renal Insuffiency? No End Stage Renal Disease? No UTI? No Stones? No BPH? No GB Disease: No Nephritic Syndrome? No Asplenia? No Hepatitis? No Sickle Cell Disease? No Arthritis? No Migraines? No Cataracts? No Glaucoma? No MRSA? No HIV? No TB? No Anxiety? No Depression? No Cancer? No More? 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 Respiratory denies cough, denies shortness of breath, denies wheezing Cardiovascular denies chest pain, denies syncope Gastrointestinal denies abdominal pain, denies diarrhea, denies vomiting Genitourinary denies: dysuria, frequency, hesitancy, hematuria. Musculoskeletal see HPI, denies back pain, joint pain, denies joint swelling, denies neck pain Skin denies rash Psychiatric/Neurological denies headache, denies seizure Physical Exam Vital Signs Vital Signs Date Time Temp Pulse Resp B/P Pulse O2 O2 Flow FiO2 Ox Delivery Rate 05/25 0710 88 20 119/50 91 05/25 0613 97.6 103 20 119/57 91 - WBC >12,000 or <4,000 or 10% bands? 2 or more SIRS Criteria Met? B/P:119/50 MAP:77 Creatinine >2.0? UA output<0.5ml/kg/hr for 2 hrs? Platelet count >100,000? Lactate >2.0mmol/1? INR >1.2 or PTT > than 60 sec? Evidence of Organ Dysfunction? Provider documented clinical suspician of infection? N Sepsis Criteria Count: 2 Sepsis Risk: Possible Sepsis Risk General Appearance no apparent distress Eye Exam - bilateral eye PERRL, bilateral eye EOMI Ear, Nose, Throat normal ENT inspection Neck supple Respiratory Status No: respiratory distress. Lung Sounds bilateral: lungs clear. Cardiovascular regular rate/rhythm Peripheral Pulses Pulses normal Yes Extremities pelvis stable, no effusion or acute changes noted but lat pain with ambulation - no hip pain able to stand /neurovascular ok Strength 4 Upper Ext (L), 4 Upper Ext (R), 4 Lower Ext (L), 4 Lower Ext (R) Neurologic alert, cop II-XII nml as tested, no motor/sensory deficits Reflexes Reflexes normal No Mental status normal mood/affect Skin intact Medical Decision Making LABS/Meds/Orders Pt receiving controlled substance in ED? No Results/Orders Current Medication Orders Sig/Roddy Start time Last Medication Dose Route Stop Time Status Admin Acetaminophen 650 MG ONCE ONE 05/25 630 DC 05/25 PO 05/25 Acetaminophen 0 .STK-MED ONE 05/25 618 DC PO Orders Procedure Date/time Status LOWER LEG-RT 05/25 627 Active KNEE-3 VIEWS-RT 05/25 627 Active XRAY/CT/US XRAY/CT/US XRAY knee, leg XR interpretation by reviewed by me Xray Results no fracture seen Departure Departure Time of Disposition 732 Disposition DC Home or Self Care(routine) Clinical Impression Primary Impression: Right knee sprain Qualifiers: Encounter type: initial encounter Involved ligament of knee: unspecified ligament Qualified Code: S83.91XA - Sprain of unspecified site of right knee, initial encounter Condition STABLE Referrals Jacob Quintero MD (Family) Patient Instructions DI for Knee Sprain Additional Instructions ice and wt bearing as kylah and see pcp for follow up Discharge Counseling Counseled pt/family regarding diagnosis, test results, medications/RX, follow up needs ED Critical Care Critical Care No at 0735
--- NOTE | 2017-05-25 07:35 | RADIOLOGY REPORT PS360 ---
KNEE-3 VIEWS-RT HISTORY: Posttraumatic pain FALL ORDERING PHYSICIAN: Anais Monsivais MD PATIENT AGE: 56 years COMPARISON: None FINDINGS: No fracture or dislocation. No lytic or blastic change. Normal mineralization. No significant arthritic changes evident. No other significant findings IMPRESSION: Negative Knee
--- NOTE | 2017-05-25 07:35 | RADIOLOGY REPORT PS360 ---
LOWER LEG-RT HISTORY: Posttraumatic pain FALL ORDERING PHYSICIAN: Anais Monsivais MD PATIENT AGE: 56 years COMPARISON: None FINDINGS: No fracture or dislocation. No lytic or blastic change. IMPRESSION: Negative right tib-fib
[2017-05-25 07:59] VITALS: BP 110/56
== END 2017-05-25 08:00 | disposition home or self-care (01) ==
LOC: ER 06:07
PROC: 2W3LX1Z Immobilization of Right Lower Extremity using Splint (ICD-10-PCS; principal; 2017-05-25)
DX: S83.91XA Sprain of unspecified site of right knee, initial encounter (principal); J44.9 Chronic obstructive pulmonary disease, unspecified; K21.9 Gastro-esophageal reflux disease without esophagitis; Z72.0 Tobacco use; W01.0XXA Fall on same level from slipping, tripping and stumbling without subsequent striking against object, initial encounter; Y92.009 Unspecified place in unspecified non-institutional (private) residence as the place of occurrence of the external cause